=== PATIENT | female | born 1955 | race Caucasian/White ===

== ENCOUNTER 2019-05-30 08:08 | Inpatient (IN) | payer MEDICARE, MEDICAID ==
[2019-05-21 11:46] LABS: BASOPHILS # (AUTO) 0.1 X10'3 (0-0.2); EOSINOPHILS # (AUTO) 0.1 X10'3 (0-0.9); EOSINOPHILS % (AUTO) 1.5 % (0-6); LYMPHOCYTES # (AUTO) 1.4 X10'3 (1.1-4.8); LYMPHOCYTES % (AUTO) 17.9 % (21-51); MEAN CORPUSCULAR HEMOGLOBIN 30.2 PG (27.0-31.0); MEAN CORPUSCULAR HGB CONC 34.8 g/dL (33.0-36.5); MEAN CORPUSCULAR VOLUME 86.7 FL (78-98); MEAN PLATELET VOLUME 7.8 FL (7.4-10.4); MONOCYTES # (AUTO) 0.5 X10'3 (0-0.9); NEUTROPHILS # (AUTO) 5.6 X10'3 (1.8-7.7); NEUTROPHILS % (AUTO) 72.6 % (42-75); PRE OP HEMATOCRIT 40.2 % (35.0-45.0); PRE OP PLATELET COUNT 216 X10'3 (140-440); RED BLOOD COUNT 4.64 X10'6 (4.20-5.60); RED CELL DISTRIBUTION WIDTH 14.8 % (11.5-14.5)
[2019-05-21 11:57] LABS: PRE OP PROTIME 10.8 SECONDS (9.0-12.0)
[2019-05-21 12:02] LABS: ALBUMIN 3.6 G/DL (3.4-5.0); ALBUMIN/GLOBULIN RATIO 0.9 (1.1-1.5); ALKALINE PHOSPHATASE 109 IU/L (46-116); BLOOD UREA NITROGEN 20 MG/DL (7-18); BUN/CREATININE RATIO 18.3 (6.6-38.0); CHLORIDE 105 MMOL/L (99-107); CREATININE 1.09 MG/DL (0.40-0.90); PRE OP ALT 19 U/L (30-65); PRE OP ANION GAP 9 (8-16); PRE OP BILIRUB, TOTAL 0.4 MG/DL (0.0-1.0); PRE OP SODIUM 140 MMOL/L (135-145); TOTAL PROTEIN 7.4 G/DL (6.4-8.2); eGFR 51 ML/MIN
[2019-05-21 12:03] LABS: PRE OP GLUCOSE 117 MG/DL (70-104); PRE OP POTASSIUM 4.3 MMOL/L (3.4-5.1)
[2019-05-21 12:04] LABS: HEMOGLOBIN A1C 5.3 % (4.5-6.2)
[2019-05-21 12:15] LABS: PRE OP AST 18 U/L (10-37)
[~2019-05-30] VITALS: Ht 167.6 cm; Wt 86.2 kg
[2019-05-30] VITALS (15 sets, daily range): BP systolic 93–152; BP diastolic 67–99
[~2019-05-30 08:08] MED LIST: ALBU18HF2 INH; APIX5TAB3 PO; BUDE10.2 INH; DILT120T3 PO; DOCUMENT DATE & TIME OF BETA-BLOCKER PO ONE; FERR325T39 PO; FURO40TA4 PO; HYDR-3972 PO; LISI10TA4 PO; METF500T PO; METO25TA6 PO; MONT10TA21 PO; NITR0.4T SL; OMEP-50 PO; POTA10CA44 PO; RANI150T8 PO; SERT100T PO; SPIIN INH; albuterol 2.5 MG/3 ML nebule NEB ONE; cefazolin/dext.iso 2gm/100ml 100 ML IV ONE; famotidine 20mg tablet PO ONE; ringers solution, lacted 1,000 ML IV SCH; tranexamic acid inj. 860 MG in normal saline 100ml IV soln 100 ML IV ONE; vancomycin inj 1,500 MG in normal saline 300ml IV soln IV ONE
[2019-05-30] MEDS ORDERED: sevoflurane 250ml liquid IH ONE (12:15)
[2019-05-30] MEDS ORDERED: fentaNYL/PF 50MCG/1 ML 2ML syringe ONE (12:18)
[2019-05-30] MEDS ORDERED: MIDAZolam 5mg/5ml vial ONE (12:19)
[2019-05-30] MEDS ORDERED: propofol inj 20 ML IV ONE (12:58)
[2019-05-30] MEDS ORDERED: ePHEDrine 50MG/ML INJ. ONE (12:58)
[2019-05-30] MEDS ORDERED: ROPIVAcaine 0.5% (5mg/ml) 30ml vial ONE ×2 (13:20→13:31)
[2019-05-30] MEDS ORDERED: ketorolac trometh. 30mg/ml inj. ONE (13:20)
[2019-05-30] MEDS ORDERED: ringers solution, lacted 1,000 ML IV SCH (13:46)
[2019-05-30] MEDS ORDERED: ondansetron/PF 4mg/2ml inj IV PRN ×2 (13:50→14:50)
[2019-05-30] MEDS ORDERED: ROPIVAcaine 0.2% (10 MG/5 ML) BOLUS INJECTION INTERSCALE PRN (13:50)
[2019-05-30] MEDS ORDERED: proCHLORperazine 10 MG/2 ml inj IV PRN (13:50)
[2019-05-30] MEDS ORDERED: meperidine/PF 25mg/ml syringe IV PRN ×3 (13:50)
[2019-05-30] MEDS ORDERED: morphine 4 MG/ML inj SYRINge IV PRN ×2 (13:50)
--- NOTE | 2019-05-30 14:30 | NUR ---
Received from OR via ortho bed, accompanied by Anesthesiologist Vaughn and report given by Anesthesiolgist. Pt is stable and responding to questions, requesting food no pain, all VS stable, mask at 10L O2 100%. Bilateral radial pulses palpable. ON-Q line present to shoulder. Shoulder gauze dressing wrapped with sling and cool pack. SCDs present, no velasquez. 20G IV right wrist LR at 100cc/hr.
[2019-05-30] MEDS ORDERED: magnesium hydroxide 30ml (MOM) UD suspension PO PRN (14:50)
[2019-05-30] MEDS ORDERED: HYDROmorphone 1 mg/ml syringe IV PRN (14:50)
[2019-05-30] MEDS ORDERED: oxyCODONE IR 5mg (immed. release) tablet PO PRN (14:50)
[2019-05-30] MEDS ORDERED: acetaminophen 325mg tablet PO PRN (14:50)
[2019-05-30] MEDS ORDERED: bisacodyl 10mg suppository rectal RC PRN (14:50)
[2019-05-30] MEDS ORDERED: HYDROmorphone inj. 0.5 MG/0.5 ML DISP.SYRIN IV PRN (14:50)
[2019-05-30] MEDS ORDERED: HYDROcodone/acetaminophen 10/325mg tab PO PRN (14:50)
[2019-05-30] MEDS ORDERED: diphenhydrAMINE 25mg capsule PO PRN (14:50)
[2019-05-30] MEDS: ROPIVAcaine 0.2%/PF PUMP/bolus 550 ML INTERSCALE SCH (14:59)
[2019-05-30] MEDS ORDERED: albuterol 2.5 MG/3 ML nebule NEB PRN (15:10)
--- NOTE | 2019-05-30 15:30 | NUR ---
Report called to receiving nurse. Transferred via surgical bed. Belongings on bedside. Special Issues communicated to receiving nurse Neda CALHOUN. Pt VS remain WNL, pt continues to have no feeling in left hand, shoulder remains with ice pack dressing CDI. Chart at bedside, RN at [facility] prior to me leaving patient. O2 at 3L. Pt alert and oriented. Still complains of being very hungry.
--- NOTE | 2019-05-30 15:40 | NUR ---
ASSUMED CARE, RECEIVED REPORT FROM TJ CALHOUN. POST OP VITALS STARTED, PATIENT REPORTS 0/10 PAIN.
[2019-05-30] MEDS: ceFAZolin/D5W- 1GM premix 50 ML IV SCH (16:21)
[2019-05-30] MEDS: potassium cl 20mEq in 1/2 NS 1,000 ML IV SCH ×2 (17:42→22:46)
--- NOTE | 2019-05-30 17:53 | NUR ---
Student documentation: I have reviewed and agree with all interventions, assessments performed and documented by BRI PRADO.
--- NOTE | 2019-05-30 17:54 | NUR ---
Student Medication Administration: For this medication-pass time frame, all medication were reviewed, dispensed, administered and documented per hospital policy by BRI PRADO.
[2019-05-30] MEDS ORDERED: tranexamic acid inj. 860 MG in normal saline 100ml IV soln 100 ML IV ONE (18:00)
--- NOTE | 2019-05-30 18:10 | NUR ---
Problems reprioritized. Patient report given, questions answered & plan of care reviewed with IRINA CALHOUN.
--- NOTE | 2019-05-30 18:33 | NUR ---
Patient in room ORTHO 4015. I have received report from Neda CALHOUN and had the opportunity to ask questions and assume patient care.
[2019-05-30] MEDS: apixaban 5mg tablet PO SCH (19:49)
[2019-05-30] MEDS: ferrous sulfate 325mg tablet PO SCH (19:49)
[2019-05-30] MEDS: diltiazem SR 60mg capsule (twice daily) PO SCH (19:49)
[2019-05-30] MEDS: metoprolol tartrate 25mg tablet PO SCH (19:49)
[2019-05-30] MEDS: metFORMIN 500mg tablet PO SCH (19:49)
[2019-05-30] MEDS: acetaminophen 325mg tablet PO SCH (19:50)
[2019-05-30] MEDS ORDERED: vancomycin/NS 1 GM ADD-VANTAGE 250 ML IV SCH (20:00)
[2019-05-30] MEDS: famotidine 10mg tablet PO SCH (20:00)
[2019-05-30] MEDS ORDERED: famotidine 20mg tablet PO SCH (20:00)
[2019-05-30] MEDS: budesonide 0.5mg/2ml UD nebule IH SCH (20:04)
[2019-05-30] MEDS: ipratropium 0.5 MG/2.5ML nebule IH SCH (20:04)
[2019-05-30] MEDS: montelukast 10mg tablet PO SCH (20:43)
[2019-05-30] MEDS: sennosides 8.6mg tablet PO SCH (20:43)
[2019-05-30] MEDS: diphenhydrAMINE 25mg capsule PO PRN (22:14)
[2019-05-31] MEDS: ceFAZolin/D5W- 1GM premix 50 ML IV SCH (00:09)
[2019-05-31] MEDS: acetaminophen 325mg tablet PO SCH ×4 (02:00→20:58)
[2019-05-31] MEDS: ipratropium 0.5 MG/2.5ML nebule IH SCH ×4 (02:49→20:33)
[2019-05-31 03:00] VITALS: BP 104/65
[2019-05-31 05:22] LABS: BASOPHILS % (AUTO) 0.3 % (0-1); EOSINOPHILS % (AUTO) 0.5 % (0-6); HEMATOCRIT 31.4 % (35.0-45.0); LYMPHOCYTES % (AUTO) 12.6 % (21-51); MEAN CORPUSCULAR HEMOGLOBIN 30.5 PG (27.0-31.0); MEAN CORPUSCULAR VOLUME 87.2 FL (78-98); MEAN PLATELET VOLUME 8.6 FL (7.4-10.4); MONOCYTES # (AUTO) 0.5 X10'3 (0-0.9); NEUTROPHILS # (AUTO) 6.2 X10'3 (1.8-7.7); NEUTROPHILS % (AUTO) 80.6 % (42-75); PLATELET COUNT 147 X10'3 (140-440); RED CELL DISTRIBUTION WIDTH 14.6 % (11.5-14.5); WHITE BLOOD COUNT 7.7 X10'3 (4.5-11.0)
[2019-05-31 05:27] LABS: ANION GAP 10 (8-16); CHLORIDE 105 MMOL/L (99-107); POTASSIUM 3.9 MMOL/L (3.5-5.1); SODIUM 137 MMOL/L (135-145); TOTAL CARBON DIOXIDE 22.5 MMOL/L (24-32)
[2019-05-31 06:00] VITALS: BP 113/49
--- NOTE | 2019-05-31 06:00 | NUR ---
Patient in room ORTHO 4015. I have received report from Lisa CALHOUN and had the opportunity to ask questions and assume patient care.
--- NOTE | 2019-05-31 06:42 | NUR ---
Problems reprioritized. Patient report given, questions answered & plan of care reviewed with Emely CALHOUN.
[2019-05-31] MEDS: metFORMIN 500mg tablet PO SCH ×2 (07:41→19:25)
[2019-05-31] MEDS: pantoprazole 40mg Tablet.DR PO SCH (07:41)
[2019-05-31] MEDS: apixaban 5mg tablet PO SCH ×2 (07:42→19:25)
[2019-05-31] MEDS: diltiazem SR 60mg capsule (twice daily) PO SCH ×2 (07:42→19:36)
[2019-05-31] MEDS: ferrous sulfate 325mg tablet PO SCH ×2 (07:42→19:28)
[2019-05-31] MEDS: lisinopril 10 MG tablet PO SCH (07:43)
[2019-05-31] MEDS: sertraline 50mg tablet PO SCH (07:43)
[2019-05-31] MEDS: aspirin 325mg tablet PO SCH (07:43)
[2019-05-31] MEDS: metoprolol tartrate 25mg tablet PO SCH ×2 (07:44→19:28)
[2019-05-31] MEDS: famotidine 10mg tablet PO SCH ×2 (07:48→19:36)
[2019-05-31] MEDS: budesonide 0.5mg/2ml UD nebule IH SCH ×2 (08:29→20:33)
[2019-05-31 10:00] VITALS: BP 96/74
[2019-05-31] MEDS: oxyCODONE IR 5mg (immed. release) tablet PO PRN ×3 (15:16→23:50)
[2019-05-31 18:00] VITALS: BP 124/67
--- NOTE | 2019-05-31 18:16 | NUR ---
Problems reprioritized. Patient report given, questions answered & plan of care reviewed with Lisa CALHOUN.
--- NOTE | 2019-05-31 18:22 | NUR ---
Patient in room ORTHO 4015. I have received report from Emely CALHOUN and had the opportunity to ask questions and assume patient care.
[2019-05-31] MEDS: sennosides 8.6mg tablet PO SCH (20:58)
[2019-05-31] MEDS: montelukast 10mg tablet PO SCH (20:58)
[2019-05-31 22:00] VITALS: BP 111/54
[2019-06-01] MEDS: ipratropium 0.5 MG/2.5ML nebule IH SCH ×4 (02:32→19:36)
[2019-06-01] MEDS: acetaminophen 325mg tablet PO SCH ×3 (02:46→14:01)
[2019-06-01] MEDS: oxyCODONE IR 5mg (immed. release) tablet PO PRN ×5 (03:53→20:56)
[2019-06-01 06:00] VITALS: BP 131/66
--- NOTE | 2019-06-01 06:03 | NUR ---
Problems reprioritized. Patient report given, questions answered & plan of care reviewed with JOY CALHOUN.
--- NOTE | 2019-06-01 06:15 | NUR ---
received report from carlos eduardo [place]
[2019-06-01] MEDS: aspirin 325mg tablet PO SCH (07:12)
[2019-06-01] MEDS: apixaban 5mg tablet PO SCH ×2 (07:12→20:56)
[2019-06-01] MEDS: pantoprazole 40mg Tablet.DR PO SCH (07:12)
[2019-06-01] MEDS: diltiazem SR 60mg capsule (twice daily) PO SCH ×2 (07:14→20:56)
[2019-06-01] MEDS: famotidine 10mg tablet PO SCH ×2 (07:14→20:57)
[2019-06-01] MEDS: metFORMIN 500mg tablet PO SCH ×2 (07:14→20:57)
[2019-06-01] MEDS: ferrous sulfate 325mg tablet PO SCH ×2 (07:14→20:57)
[2019-06-01] MEDS: lisinopril 10 MG tablet PO SCH (07:15)
[2019-06-01] MEDS: metoprolol tartrate 25mg tablet PO SCH ×2 (07:16→20:57)
[2019-06-01] MEDS: sertraline 50mg tablet PO SCH (07:16)
--- NOTE | 2019-06-01 07:17 | NUR ---
JAYLIN DID NOT SCAN INTO [employer], CHECKED MEDS PRIOR TO ADMIN
[2019-06-01 07:38] LABS: BASOPHILS % (AUTO) 0.5 % (0-1); EOSINOPHILS # (AUTO) 0.1 X10'3 (0-0.9); EOSINOPHILS % (AUTO) 1.3 % (0-6); HEMATOCRIT 30.4 % (35.0-45.0); HEMOGLOBIN 10.4 g/dl (12.0-16.0); LYMPHOCYTES # (AUTO) 0.9 X10'3 (1.1-4.8); LYMPHOCYTES % (AUTO) 16.1 % (21-51); MEAN CORPUSCULAR HEMOGLOBIN 30.3 PG (27.0-31.0); MEAN CORPUSCULAR HGB CONC 34.1 g/dL (33.0-36.5); MEAN CORPUSCULAR VOLUME 88.9 FL (78-98); MEAN PLATELET VOLUME 9.5 FL (7.4-10.4); MONOCYTES # (AUTO) 0.5 X10'3 (0-0.9); MONOCYTES % (AUTO) 8.9 % (2-12); NEUTROPHILS # (AUTO) 4.2 X10'3 (1.8-7.7); NEUTROPHILS % (AUTO) 73.2 % (42-75); PLATELET COUNT 126 X10'3 (140-440); RED BLOOD COUNT 3.41 X10'6 (4.20-5.60); RED CELL DISTRIBUTION WIDTH 14.7 % (11.5-14.5); WHITE BLOOD COUNT 5.8 X10'3 (4.5-11.0)
[2019-06-01] MEDS ORDERED: potassium chloride 10mEq ER tablet PO SCH (08:00)
[2019-06-01] MEDS ORDERED: furosemide 40mg tablet PO SCH (08:00)
[2019-06-01] MEDS: budesonide 0.5mg/2ml UD nebule IH SCH ×2 (08:35→19:37)
[2019-06-01 10:00] VITALS: BP 110/60
[2019-06-01] MEDS: ROPIVAcaine 0.2%/PF PUMP/bolus 550 ML INTERSCALE SCH (12:28)
[2019-06-01] MEDS ORDERED: acetaminophen 325mg tablet PO PRN (14:50)
--- NOTE | 2019-06-01 15:08 | NUR ---
GAVE REPORT TO LJ ASTUDILLO
[2019-06-01 18:00] VITALS: BP 111/64
--- NOTE | 2019-06-01 18:21 | NUR ---
Patient in room ORTHO 4015. I have received report from Tanja CALHOUN and had the opportunity to ask questions and assume patient care.
--- NOTE | 2019-06-01 18:27 | NUR ---
Problems reprioritized. Patient report given, questions answered & plan of care reviewed with LJ Gonzalez.
[2019-06-01] MEDS: montelukast 10mg tablet PO SCH (20:56)
[2019-06-01] MEDS: sennosides 8.6mg tablet PO SCH (20:57)
[2019-06-01] MEDS: diphenhydrAMINE 25mg capsule PO PRN (21:00)
[2019-06-01 22:00] VITALS: BP 123/72
[2019-06-02] MEDS: oxyCODONE IR 5mg (immed. release) tablet PO PRN ×4 (01:06→09:30)
[2019-06-02] MEDS: ipratropium 0.5 MG/2.5ML nebule IH SCH ×2 (02:36→08:29)
--- NOTE | 2019-06-02 06:26 | NUR ---
Patient in room ORTHO 4015. I have received report from Tanja CALHOUN and had the opportunity to ask questions and assume patient care.
[2019-06-02 06:53] LABS: BASOPHILS % (AUTO) 0.7 % (0-1); EOSINOPHILS # (AUTO) 0.1 X10'3 (0-0.9); EOSINOPHILS % (AUTO) 1.1 % (0-6); HEMATOCRIT 30.5 % (35.0-45.0); HEMOGLOBIN 10.5 g/dl (12.0-16.0); LYMPHOCYTES # (AUTO) 0.8 X10'3 (1.1-4.8); LYMPHOCYTES % (AUTO) 14.5 % (21-51); MEAN CORPUSCULAR HEMOGLOBIN 29.7 PG (27.0-31.0); MEAN CORPUSCULAR HGB CONC 34.3 g/dL (33.0-36.5); MEAN CORPUSCULAR VOLUME 86.7 FL (78-98); MEAN PLATELET VOLUME 9.1 FL (7.4-10.4); MONOCYTES # (AUTO) 0.4 X10'3 (0-0.9); MONOCYTES % (AUTO) 7.4 % (2-12); NEUTROPHILS # (AUTO) 4.5 X10'3 (1.8-7.7); NEUTROPHILS % (AUTO) 76.3 % (42-75); PLATELET COUNT 156 X10'3 (140-440); RED BLOOD COUNT 3.52 X10'6 (4.20-5.60); RED CELL DISTRIBUTION WIDTH 14.5 % (11.5-14.5); WHITE BLOOD COUNT 5.8 X10'3 (4.5-11.0)
[2019-06-02 07:15] VITALS: BP 119/67
[2019-06-02 07:30] VITALS: BP 138/77
[2019-06-02] MEDS: apixaban 5mg tablet PO SCH (07:32)
[2019-06-02] MEDS: pantoprazole 40mg Tablet.DR PO SCH (07:32)
[2019-06-02] MEDS: diltiazem SR 60mg capsule (twice daily) PO SCH (07:32)
[2019-06-02] MEDS: metFORMIN 500mg tablet PO SCH (07:33)
[2019-06-02] MEDS: ferrous sulfate 325mg tablet PO SCH (07:33)
[2019-06-02] MEDS: metoprolol tartrate 25mg tablet PO SCH (07:33)
[2019-06-02] MEDS: lisinopril 10 MG tablet PO SCH (07:34)
[2019-06-02] MEDS: famotidine 10mg tablet PO SCH (07:34)
[2019-06-02] MEDS: sertraline 50mg tablet PO SCH (07:35)
[2019-06-02] MEDS: aspirin 325mg tablet PO SCH (07:36)
[2019-06-02] MEDS: budesonide 0.5mg/2ml UD nebule IH SCH (08:24)
[2019-06-02 09:53] VITALS: BP 118/63
--- NOTE | 2019-06-02 11:00 | NUR ---
Discussed pts current plan for pain medication while at home after dc today. Pt states she is already taking Hazen 10 2 tabs/day, and has a prescription she gets from her PCP in [place]. Pt states she cannot fill 's RX for Hazen until 06/07. Pt states she wants Dr. Blackwell to order Oxy IR "because it works really great." in surgery today. Informed pt I would call his office to leave a message about pain medication needs. Pt still has approximately 1/2 of the Ropivicaine ball left. Ropivicaine set at 10ml/hr. TC placed to Dr. Blackwell's office and spoke to vEa, who informed RN that she will contact in Surgery to let him know pt cannot fill current RX for Hazen post op until 06/07, but she does have Hazen RX at home with pills to last until 06/21. arrived on the unit at approximately 1100. Went to make rounds with Dr. Blackwell. Dr. Blackwell informed pt that he will cancel the first RX given to her at her pre op appt for Hazen 10, and will order Oxy IR enough for 2 weeks, but wants her off all narcotics in [address] Blackwell advised to pt to use the rest of the Ropivicaine pump, then dc. Dressing change done to left shoulder. Removed old dressing, which had a scant amount of sanguineous drainage on it. Incision is clean/dry and applied new [place] dressing. IV removed from LFA and bandaid applied. No redness/swelling at IV site. Pt discharged at 1200 via w/c to private vehicle.
--- NOTE | 2019-06-02 11:10 | NUR ---
Student documentation:I have reviewed and agree with all interventions, assessments performed and documented by Alicia Stevenson.
== END 2019-06-02 12:00 | disposition home or self-care (01) | DRG 483 ==
LOC: PAS IN 08:08 → EDSTATUS 11:00 → ORTHO 4S 15:15
PROVIDERS: ADMIT Orthopaedic Surgery; ATTEND Orthopaedic Surgery
PROC: 0LS40ZZ Reposition Left Upper Arm Tendon, Open Approach (ICD-10-PCS; 2019-05-30)
PROC: 3E0T3BZ Introduction of Anesthetic Agent into Peripheral Nerves and Plexi, Percutaneous Approach (ICD-10-PCS; 2019-05-30)
PROC: 0RRK00Z Replacement of Left Shoulder Joint with Reverse Ball and Socket Synthetic Substitute, Open Approach (ICD-10-PCS; principal; 2019-05-30 12:19)
PROC: 5A09357 Assistance with Respiratory Ventilation, Less than 24 Consecutive Hours, Continuous Positive Airway Pressure (ICD-10-PCS; 2019-05-31)
PROC: 5A09357 Assistance with Respiratory Ventilation, Less than 24 Consecutive Hours, Continuous Positive Airway Pressure (ICD-10-PCS; 2019-06-01)
DX: M19.012 Primary osteoarthritis, left shoulder (principal); M75.122 Complete rotator cuff tear or rupture of left shoulder, not specified as traumatic; J44.9 Chronic obstructive pulmonary disease, unspecified; G89.4 Chronic pain syndrome; E66.9 Obesity, unspecified; I12.9 Hypertensive chronic kidney disease with stage 1 through stage 4 chronic kidney disease, or unspecified chronic kidney disease; N18.3 Chronic kidney disease, stage 3 (moderate); K21.9 Gastro-esophageal reflux disease without esophagitis; I48.91 Unspecified atrial fibrillation; E78.5 Hyperlipidemia, unspecified; Z96.643 Presence of artificial hip joint, bilateral; Z88.0 Allergy status to penicillin; Z68.30 Body mass index [BMI] 30.0-30.9, adult
CPT/HCPCS: 36415; 71046; 80051; 80053; 82948; 83036; 85025; 85610; 85730; 87081; 94640; 94760; 97110; 97116; 97161; 97530; A4565; A4618; A7000; C1776; G0378; J0690; J1885; J2250; J2405; J2704; J2795; J3010; J3370; J3480; J7120; J7626; Q0163

== ENCOUNTER 2020-06-20 11:33 | Inpatient (IN) | payer MEDICARE, MEDICAID ==
[~2020-06-20] VITALS: Ht 165.1 cm; Wt 89.6 kg
[~2020-06-20 11:33] MED LIST changes: -DOCUMENT DATE & TIME OF BETA-BLOCKER PO ONE; -albuterol 2.5 MG/3 ML nebule NEB ONE; -cefazolin/dext.iso 2gm/100ml 100 ML IV ONE; -famotidine 20mg tablet PO ONE; -ringers solution, lacted 1,000 ML IV SCH; -tranexamic acid inj. 860 MG in normal saline 100ml IV soln 100 ML IV ONE; -vancomycin inj 1,500 MG in normal saline 300ml IV soln IV ONE
[2020-06-20] MEDS ORDERED: aspirin 81mg tab.chew PO ONE (12:10)
[2020-06-20 12:26] LABS: BASOPHILS % (AUTO) 0.6 % (0-1); EOSINOPHILS % (AUTO) 0.8 % (0-6); HEMATOCRIT 32.5 % (35.0-45.0); HEMOGLOBIN 11.3 g/dl (12.0-16.0); LYMPHOCYTES % (AUTO) 16.6 % (21-51); MEAN CORPUSCULAR HEMOGLOBIN 31.1 PG (27.0-31.0); MEAN CORPUSCULAR HGB CONC 34.8 g/dL (33.0-36.5); MEAN CORPUSCULAR VOLUME 89.2 FL (78-98); MEAN PLATELET VOLUME 8.7 FL (7.4-10.4); MONOCYTES # (AUTO) 0.3 X10'3 (0-0.9); MONOCYTES % (AUTO) 5.5 % (2-12); NEUTROPHILS # (AUTO) 4.5 X10'3 (1.8-7.7); NEUTROPHILS % (AUTO) 76.5 % (42-75); PLATELET COUNT 134 X10'3 (140-440); RED BLOOD COUNT 3.65 X10'6 (4.20-5.60); RED CELL DISTRIBUTION WIDTH 14.3 % (11.5-14.5); WHITE BLOOD COUNT 5.8 X10'3 (4.5-11.0)
[2020-06-20 12:29] LABS: PARTIAL THROMBOPLASTIN TIME 28 SECONDS (22-32)
[2020-06-20 12:32] LABS: ALANINE AMINOTRANSFERASE 57 U/L (12-78); ALBUMIN 3.5 G/DL (3.4-5.0); ALKALINE PHOSPHATASE 104 IU/L (46-116); ANION GAP 10 (8-16); ASPARTATE AMINO TRANSFERASE 34 U/L (10-37); BILIRUBIN,TOTAL 0.4 MG/DL (0.1-1.0); BLOOD UREA NITROGEN 16 MG/DL (7-18); BUN/CREATININE RATIO 18.4 (6.6-38.0); CALCIUM 8.9 MG/DL (8.5-10.1); CHLORIDE 107 MMOL/L (99-107); CREATININE 0.87 MG/DL (0.40-0.90); GLUCOSE 107 MG/DL (70-104); POTASSIUM 3.6 MMOL/L (3.5-5.1); SODIUM 143 MMOL/L (135-145); TOTAL CARBON DIOXIDE 26.5 MMOL/L (24-32); TOTAL PROTEIN 6.9 G/DL (6.4-8.2); eGFR 65 ML/MIN
[2020-06-20] MEDS ORDERED: mag hydrox/Alum hydrox/simeth 30ml oral suspension PO PRN (14:00)
[2020-06-20] MEDS ORDERED: acetaminophen 650mg rectal suppository RC PRN (14:00)
[2020-06-20] MEDS ORDERED: potassium Cl 20 mEq SR tablet PO PRN ×2 (14:00)
[2020-06-20] MEDS ORDERED: potassium Cl 40MEQ/1/2NS 520ml 520 ML IV PRN ×2 (14:00)
[2020-06-20] MEDS ORDERED: aminophylline 250mg/10ml inj. IV PRN (14:00)
[2020-06-20] MEDS ORDERED: metoprolol tartrate 1mg/ml inj IV PRN (14:00)
[2020-06-20] MEDS ORDERED: magnesium hydroxide 30ml (MOM) UD suspension PO PRN (14:00)
[2020-06-20] MEDS ORDERED: magnesium Cl slow-release 64mg tablet PO PRN (14:00)
[2020-06-20] MEDS ORDERED: bisacodyl 10mg suppository rectal RC PRN (14:00)
[2020-06-20] MEDS ORDERED: morphine 2 MG/ML inj. syringe IV PRN ×2 (14:00)
[2020-06-20] MEDS ORDERED: regadenoson 0.4mg/5ml syringe IV PRN ×2 (14:00→14:25)
[2020-06-20] MEDS ORDERED: nitroGLYCERIN 0.4mg SUBLingual tab SL PRN (14:00)
[2020-06-20] MEDS ORDERED: ondansetron/PF 4mg/2ml inj IV PRN (14:00)
[2020-06-20] MEDS ORDERED: magnesium 2GM in 50ml NS 50 ML IV PRN (14:00)
[2020-06-20] MEDS ORDERED: HYDROcodone/acetaminophen 5mg/325mg tablet PO PRN (14:00)
[2020-06-20] MEDS ORDERED: magnesium 4gm in 100ml NS 100 ML IV PRN (14:00)
[2020-06-20] MEDS ORDERED: acetaminophen 325mg tablet PO PRN (14:00)
[2020-06-20] MEDS ORDERED: diphenhydrAMINE 25mg capsule PO PRN (14:00)
[2020-06-20] MEDS: normal saline 1000ml 1,000 ML IV SCH (14:39)
[2020-06-20 15:00] VITALS: BP 145/74
--- NOTE | 2020-06-20 15:00 | NUR ---
Patient in room PCU 3014. I have received report from LJ Worthington and had the opportunity to ask questions and assume patient care.
--- NOTE | 2020-06-20 15:15 | NUR ---
Pt arrived on unit via gurney. Placed her on telemetry, VS: T-97.5, HR 82, RR 22, 97% RA, BP 145/77. Pt denies CP or SOB. Will continue to monitor.
[2020-06-20 16:02] LABS: HEMOGLOBIN A1C 5.4 % (4.5-6.2)
[2020-06-20] MEDS ORDERED: ipratropium/albuterol 3ml nebule NEB PRN (17:35)
[2020-06-20 18:00] VITALS: BP 175/89
--- NOTE | 2020-06-20 18:09 | NUR ---
Problems reprioritized. Patient report given, questions answered & plan of care reviewed with LJ Browning.
--- NOTE | 2020-06-20 18:33 | NUR ---
Patient in room PCU 3014. I have received report from Geovanna CALHOUN and had the opportunity to ask questions and assume patient care.
[2020-06-20] MEDS ORDERED: hydrALAZINE 20mg/ml inj. IV ONE (18:55)
[2020-06-20] MEDS ORDERED: methylPREDNISolone sod succ 125mg/2ml vial IV ONE (18:55)
[2020-06-20] MEDS ORDERED: hydrALAZINE 20mg/ml inj. IV PRN (18:55)
[2020-06-20] MEDS: ipratropium/albuterol 3ml nebule NEB SCH ×2 (19:53→23:26)
[2020-06-20] MEDS: K and/or MAG REPLACEMENT MC SCH (20:00)
[2020-06-20] MEDS: HYDROcodone/acetaminophen 10/325mg tab PO PRN (20:42)
[2020-06-20] MEDS: methylPREDNISolone sod succ 125mg/2ml vial IV SCH (20:43)
[2020-06-20] MEDS ORDERED: diphenhydrAMINE 25 MG/10 ML UD oral solution PO ONE (21:00)
--- NOTE | 2020-06-20 21:53 | NUR ---
Paged Dr. Ch RE sleep meds, anxiety, high BP RE Kaity Fitzpatrick 65F [id number]; please call Nallely CALHOUN [phone]
[2020-06-20 22:00] VITALS: BP 166/78
[2020-06-20] MEDS ORDERED: metoprolol tartrate 1mg/ml inj IV ONE (22:00)
[2020-06-21] VITALS (19 sets, daily range): BP systolic 137–169; BP diastolic 70–99
[2020-06-21] MEDS: methylPREDNISolone sod succ 125mg/2ml vial IV SCH ×4 (02:47→20:27)
[2020-06-21] MEDS: ipratropium/albuterol 3ml nebule NEB SCH ×6 (03:51→23:22)
--- NOTE | 2020-06-21 06:12 | NUR ---
Patient in room U 3014. I have received report from Kanwal and had the opportunity to ask questions and assume patient care. Addendum: 06/21/20 at 0613 by Geovanna Clifford RN Nallely CALHOUN
[2020-06-21 06:20] LABS: BASOPHILS % (AUTO) 0.2 % (0-1); EOSINOPHILS % (AUTO) 0 % (0-6); HEMATOCRIT 32.7 % (35.0-45.0); HEMOGLOBIN 11.2 g/dl (12.0-16.0); LYMPHOCYTES # (AUTO) 0.2 X10'3 (1.1-4.8); LYMPHOCYTES % (AUTO) 3.4 % (21-51); MEAN CORPUSCULAR HEMOGLOBIN 30.6 PG (27.0-31.0); MEAN CORPUSCULAR HGB CONC 34.4 g/dL (33.0-36.5); MEAN CORPUSCULAR VOLUME 89.1 FL (78-98); MEAN PLATELET VOLUME 8.9 FL (7.4-10.4); MONOCYTES # (AUTO) 0.1 X10'3 (0-0.9); MONOCYTES % (AUTO) 1.1 % (2-12); NEUTROPHILS # (AUTO) 4.9 X10'3 (1.8-7.7); NEUTROPHILS % (AUTO) 95.3 % (42-75); PLATELET COUNT 155 X10'3 (140-440); RED BLOOD COUNT 3.67 X10'6 (4.20-5.60); RED CELL DISTRIBUTION WIDTH 14.2 % (11.5-14.5); WHITE BLOOD COUNT 5.2 X10'3 (4.5-11.0)
--- NOTE | 2020-06-21 06:23 | NUR ---
Problems reprioritized. Patient report given, questions answered & plan of care reviewed with Geovanna CALHOUN.
[2020-06-21 06:48] LABS: ALANINE AMINOTRANSFERASE 44 U/L (12-78); ALBUMIN 3.5 G/DL (3.4-5.0); ALBUMIN/GLOBULIN RATIO 0.9 (1.1-1.5); ALKALINE PHOSPHATASE 98 IU/L (46-116); ANION GAP 13 (8-16); ASPARTATE AMINO TRANSFERASE 18 U/L (10-37); BILIRUBIN,TOTAL 0.4 MG/DL (0.1-1.0); BLOOD UREA NITROGEN 13 MG/DL (7-18); BUN/CREATININE RATIO 14.6 (6.6-38.0); CALCIUM 9.3 MG/DL (8.5-10.1); CHLORIDE 105 MMOL/L (99-107); CHOL/HDL RATIO 4.1 (0.00-4.99); CHOLESTEROL 262 MG/DL (0-200); CREATININE 0.89 MG/DL (0.40-0.90); GLUCOSE 199 MG/DL (70-104); HDL CHOLESTEROL 64 MG/DL (35-60); LDL CHOLESTEROL 174 MG/DL (50-100); PHOSPHORUS 2.9 MG/DL (2.3-4.5); POTASSIUM 3.6 MMOL/L (3.5-5.1); SODIUM 141 MMOL/L (135-145); TOTAL CARBON DIOXIDE 22.9 MMOL/L (24-32); TOTAL PROTEIN 7.3 G/DL (6.4-8.2); TRIGLYCERIDES 140 MG/DL (20-135); eGFR 63 ML/MIN
--- NOTE | 2020-06-21 07:36 | NUR ---
PAGER ID: [phone] MESSAGE: Pt Kaity Fitzpatrick is stating she took a Payton at [facility]'s office within the last six mos, do you still want the Payton? Couldn't see it in any notes we have. Nuc med is standing by. pls advise, Geovanna [id number]
[2020-06-21] MEDS: acetaminophen 325mg tablet PO PRN ×2 (07:38→14:52)
[2020-06-21] MEDS: K and/or MAG REPLACEMENT MC SCH ×2 (08:00→20:00)
[2020-06-21] MEDS: lisinopril 10 MG tablet PO SCH (11:10)
[2020-06-21] MEDS: atorvastatin 20mg tablet PO SCH (11:10)
[2020-06-21] MEDS: sertraline 50mg tablet PO SCH (11:10)
[2020-06-21] MEDS: diltiazem SR 60mg capsule (twice daily) PO SCH ×2 (11:16→20:27)
[2020-06-21] MEDS: apixaban 5mg tablet PO SCH ×2 (11:16→20:25)
[2020-06-21] MEDS: metoprolol tartrate 50mg tablet PO SCH ×2 (11:17→20:26)
--- NOTE | 2020-06-21 14:31 | NUR ---
Noted BMI 0.8 w/ current wt 2200g; not accurate. SHIRA recommended updated scaled wt this admit; notified. To f/u 06/25 for initial assessment. Addendum: 06/21/20 at [address] Amended: Links added.
--- NOTE | 2020-06-21 18:58 | NUR ---
Patient in room PCU 3014. I have received report from Geovanna CALHOUN and had the opportunity to ask questions and assume patient care.
[2020-06-21] MEDS: pantoprazole 40mg Tablet.DR PO SCH (20:00)
[2020-06-21] MEDS ORDERED: diltiazem SR 60mg capsule (twice daily) PO SCH (20:00)
[2020-06-21] MEDS ORDERED: metoprolol tartrate 50mg tablet PO SCH (20:00)
[2020-06-21] MEDS ORDERED: apixaban 5mg tablet PO SCH (20:00)
[2020-06-21] MEDS: ferrous sulfate 325mg tablet PO SCH (20:25)
[2020-06-21] MEDS ORDERED: montelukast 10mg tablet PO SCH (21:00)
[2020-06-21] MEDS: HYDROcodone/acetaminophen 10/325mg tab PO PRN (22:04)
[2020-06-22 02:00] VITALS: BP 142/73
[2020-06-22] MEDS: methylPREDNISolone sod succ 125mg/2ml vial IV SCH ×2 (02:32→07:42)
[2020-06-22] MEDS: ipratropium/albuterol 3ml nebule NEB SCH ×3 (03:04→10:27)
[2020-06-22 06:28] LABS: BASOPHILS % (AUTO) 0.1 % (0-1); EOSINOPHILS % (AUTO) 0 % (0-6); HEMATOCRIT 31.2 % (35.0-45.0); HEMOGLOBIN 10.6 g/dl (12.0-16.0); LYMPHOCYTES # (AUTO) 0.3 X10'3 (1.1-4.8); MEAN CORPUSCULAR HEMOGLOBIN 30.5 PG (27.0-31.0); MEAN CORPUSCULAR HGB CONC 33.9 g/dL (33.0-36.5); MEAN CORPUSCULAR VOLUME 89.8 FL (78-98); MEAN PLATELET VOLUME 8.9 FL (7.4-10.4); MONOCYTES # (AUTO) 0.1 X10'3 (0-0.9); MONOCYTES % (AUTO) 1.8 % (2-12); NEUTROPHILS # (AUTO) 5.9 X10'3 (1.8-7.7); NEUTROPHILS % (AUTO) 94.1 % (42-75); PLATELET COUNT 153 X10'3 (140-440); RED BLOOD COUNT 3.47 X10'6 (4.20-5.60); RED CELL DISTRIBUTION WIDTH 14.6 % (11.5-14.5); WHITE BLOOD COUNT 6.3 X10'3 (4.5-11.0)
--- NOTE | 2020-06-22 06:31 | NUR ---
Problems reprioritized. Patient report given, questions answered & plan of care reviewed with Geovanna CALHOUN.
--- NOTE | 2020-06-22 06:39 | NUR ---
Patient in room PCU 3014. I have received report from LJ Browning and had the opportunity to ask questions and assume patient care.
[2020-06-22 06:57] LABS: ALANINE AMINOTRANSFERASE 42 U/L (12-78); ALBUMIN 3.3 G/DL (3.4-5.0); ALBUMIN/GLOBULIN RATIO 0.9 (1.1-1.5); ALKALINE PHOSPHATASE 86 IU/L (46-116); ANION GAP 6 (8-16); ASPARTATE AMINO TRANSFERASE 17 U/L (10-37); BILIRUBIN,TOTAL 0.2 MG/DL (0.1-1.0); BLOOD UREA NITROGEN 22 MG/DL (7-18); BUN/CREATININE RATIO 29.3 (6.6-38.0); CHLORIDE 107 MMOL/L (99-107); CREATININE 0.75 MG/DL (0.40-0.90); GLUCOSE 144 MG/DL (70-104); MAGNESIUM 2.3 MG/DL (1.5-2.4); PHOSPHORUS 3.2 MG/DL (2.3-4.5); SODIUM 139 MMOL/L (135-145); TOTAL CARBON DIOXIDE 26.4 MMOL/L (24-32); TOTAL PROTEIN 6.8 G/DL (6.4-8.2); eGFR 77 ML/MIN
[2020-06-22 07:00] VITALS: BP 142/64
[2020-06-22] MEDS: atorvastatin 20mg tablet PO SCH (07:42)
[2020-06-22] MEDS: apixaban 5mg tablet PO SCH (07:43)
[2020-06-22] MEDS: pantoprazole 40mg Tablet.DR PO SCH (07:43)
[2020-06-22] MEDS: lisinopril 10 MG tablet PO SCH (07:43)
[2020-06-22] MEDS: diltiazem SR 60mg capsule (twice daily) PO SCH (07:43)
[2020-06-22 07:44] VITALS: BP_SYST 142
[2020-06-22] MEDS: metoprolol tartrate 50mg tablet PO SCH (07:44)
[2020-06-22] MEDS: ferrous sulfate 325mg tablet PO SCH (07:44)
[2020-06-22] MEDS: sertraline 50mg tablet PO SCH (07:44)
[2020-06-22] MEDS: K and/or MAG REPLACEMENT MC SCH (08:00)
[2020-06-22] MEDS: normal saline 1000ml 1,000 ML IV SCH (08:28)
--- NOTE | 2020-06-22 09:37 | NUR ---
Per radiotelephone operator: report of failure to capture last night was actually false. The cursor was on the screen and mistaken for a failure to capture. It was actually her rhythm converting from junction paced to Vpaced to SR. Re-interrogation not needed. Will let know.
[2020-06-22] MEDS ORDERED: ipratropium 0.5 MG/2.5ML nebule NEB SCH (10:30)
[2020-06-22] MEDS ORDERED: CEFD300C3 PO (10:39)
[2020-06-22] MEDS ORDERED: PRED10TA23 PO (10:39)
[2020-06-22] MEDS ORDERED: ATOR20TA66 PO (10:39)
[2020-06-22] MEDS ORDERED: CefTRIAXone/D5W-Rocephin 1gm 50 ML IV ONE (10:45)
--- NOTE | 2020-06-22 11:45 | NUR ---
Pt bumped her forehead in shower on grab bar while bending over to grab soap while tech standing by. Small slightly raised bump on forehead. Pt states it "doesn't hurt, I'm fine, It was my fault". Pt denies dizziness, pain, or lightheadedness. Pt still wants to discharge as planned, refuses any pics, xrays, or further treatment. She states, "the only thing I hurt was my pride." Reported to charge nurse. Will continue to monitor.
--- NOTE | 2020-06-22 14:15 | NUR ---
Pt stable for discharge per MD order, all discharge instructions reviewed with patient and all questions answered. New prescriptions faxed to pharmacy. PIV discontinued, cannula intact. Telemetry discontinued, hospital television rental clerk notified. All belongings collected and sent with patient. Pt picked up in private vehicle by family member, wheeled to lobby by staff.
[2020-06-22] MEDS ORDERED: GUAI600T45 PO (18:21)
--- NOTE | 2020-06-23 14:42 | NUR ---
CASE MANAGEMENT DISCHARGE FOLLOW UP: Spoke with pt via telephone. Pt reports that she is doing alright. Denies sx of exacerbated SOB, syncope, dizziness. Verbalizes understanding of s/sx requiring further evaluation/emergent assistance. Pt verbalizes understanding of new/current/stopped prescriptions, states that he daughter is picking them up from the pharmacy. Pt verbalizes compliance with MD discharge instructions. Pt verbalizes importance of making/keeping follow-up appointments, cannot get an appointment with PCP until 07/12 but will call if condition changes. Pt states will call Dr. Davies's office for a follow up appointment after she gets off the phone. Pt reports that she is wearing her CPAP at night and using her nebulizer for breathing treatments and that is helping. Pt states no further questions/concerns at this time.
== END 2020-06-22 14:16 | disposition home or self-care (01) | DRG 291 ==
LOC: ER 11:33 → PCU 3S 13:58 → CMPBEDREQ 06-21 19:28
PROVIDERS: ADMIT Family Medicine; ATTEND Family Medicine
PROC: 5A09357 Assistance with Respiratory Ventilation, Less than 24 Consecutive Hours, Continuous Positive Airway Pressure (ICD-10-PCS; 2020-06-20)
PROC: 4A02XM4 Measurement of Cardiac Total Activity, External Approach (ICD-10-PCS; principal; 2020-06-21)
PROC: 3E033HZ Introduction of Radioactive Substance into Peripheral Vein, Percutaneous Approach (ICD-10-PCS; 2020-06-21)
PROC: 5A09357 Assistance with Respiratory Ventilation, Less than 24 Consecutive Hours, Continuous Positive Airway Pressure (ICD-10-PCS; 2020-06-21)
PROC: 5A09357 Assistance with Respiratory Ventilation, Less than 24 Consecutive Hours, Continuous Positive Airway Pressure (ICD-10-PCS; 2020-06-22)
DX: I11.0 Hypertensive heart disease with heart failure (principal); J96.20 Acute and chronic respiratory failure, unspecified whether with hypoxia or hypercapnia; J44.1 Chronic obstructive pulmonary disease with (acute) exacerbation; J44.0 Chronic obstructive pulmonary disease with (acute) lower respiratory infection; K21.9 Gastro-esophageal reflux disease without esophagitis; I50.33 Acute on chronic diastolic (congestive) heart failure; I25.110 Atherosclerotic heart disease of native coronary artery with unstable angina pectoris; J20.9 Acute bronchitis, unspecified; I27.20 Pulmonary hypertension, unspecified; G47.30 Sleep apnea, unspecified; D63.8 Anemia in other chronic diseases classified elsewhere; G89.4 Chronic pain syndrome; I27.81 Cor pulmonale (chronic); Z96.612 Presence of left artificial shoulder joint; Z96.611 Presence of right artificial shoulder joint; I48.91 Unspecified atrial fibrillation; E11.9 Type 2 diabetes mellitus without complications; Z20.828 Contact with and (suspected) exposure to other viral communicable diseases; Z95.1 Presence of aortocoronary bypass graft; Z87.891 Personal history of nicotine dependence; Z88.0 Allergy status to penicillin; F32.9 Major depressive disorder, single episode, unspecified; F41.9 Anxiety disorder, unspecified; Z95.2 Presence of prosthetic heart valve; Z83.3 Family history of diabetes mellitus; Z82.3 Family history of stroke; Z95.810 Presence of automatic (implantable) cardiac defibrillator; Z79.01 Long term (current) use of anticoagulants
CPT/HCPCS: 36415; 71045; 78452; 80053; 80061; 82948; 83036; 83735; 84100; 84484; 85025; 85730; 87081; 87635; 93005; 93017; 93306; 93308; 94640; 94660; 94667; 94760; 96374; 96375; 97116; 97161; 97530; 99285; A9500; C9803; G0378; J0280; J0360; J0696; J2785; J2930; J3490; J7030; Q0163

== ENCOUNTER 2020-10-03 08:20 | Emergency (ER) | payer MEDICARE, MEDICAID ==
[~2020-10-03] VITALS: Ht 165.1 cm; Wt 81.8 kg
[~2020-10-03 08:20] MED LIST changes: +ATOR20TA66 PO; +GUAI600T45 PO; +LISI10TA27 PO; -LISI10TA4 PO; +LOP25T PO; -METO25TA6 PO; -RANI150T8 PO
[2020-10-03] MEDS ORDERED: ondansetron/PF 4mg/2ml inj IV ONE (10:40)
[2020-10-03] MEDS ORDERED: meclizine 12.5mg tablet PO ONE (10:40)
[2020-10-03] MEDS ORDERED: MIDAZolam 1 MG/ML 5ML VIAL IV ONE (10:40)
[2020-10-03] MEDS ORDERED: midazolam 1 mg/ML 2ml injection IV ONE (11:15)
[2020-10-03] MEDS ORDERED: MECL-159 PO (12:12)
[2020-10-03] MEDS ORDERED: ONDA4TAB6 PO (12:12)
[2020-10-03 13:00] VITALS: BP 123/63
== END 2020-10-03 13:04 | disposition home or self-care (01) ==
LOC: ER 08:20
DX: R42 Dizziness and giddiness (principal); R51.9 Headache, unspecified; I48.91 Unspecified atrial fibrillation; I50.9 Heart failure, unspecified; J44.9 Chronic obstructive pulmonary disease, unspecified; K21.9 Gastro-esophageal reflux disease without esophagitis; F41.9 Anxiety disorder, unspecified; Z86.2 Personal history of diseases of the blood and blood-forming organs and certain disorders involving the immune mechanism; Z98.890 Other specified postprocedural states; Z88.0 Allergy status to penicillin; Z79.899 Other long term (current) drug therapy
CPT/HCPCS: 70450; 93005; 96374; 96375; 99285; J2250; J2405; J8597

== ENCOUNTER 2021-07-12 21:42 | Emergency (ER) | payer BC, MEDICAID ==
[~2021-07-12] VITALS: Ht 165.1 cm; Wt 80.0 kg
[~2021-07-12 21:42] MED LIST changes: +MECL-159 PO; +ONDA4TAB6 PO
--- NOTE | 2021-07-12 21:49 | NUR ---
PLEASE CALL BERNADINE PIMENTEL [phone] WHEN FIND WHATS GOING ON
[2021-07-13] MEDS ORDERED: sulfamethoxazole/trimethoprim DS (800/160mg) tablet PO ONE (03:55)
[2021-07-13] MEDS ORDERED: ketorolac tromethamine 15mg/ml inj. IM ONE (03:55)
[2021-07-13] MEDS ORDERED: gabapentin 400mg capsule PO ONE (03:55)
[2021-07-13] MEDS ORDERED: morphine 10mg/ml inj. IM ONE (03:55)
[2021-07-13] MEDS ORDERED: SULF1TAB49 PO (04:11)
[2021-07-13] MEDS ORDERED: GABA-534 PO (04:11)
[2021-07-13 04:30] VITALS: BP 120/74
== END 2021-07-13 04:31 | disposition home or self-care (01) ==
LOC: ER 21:43
DX: L03.032 Cellulitis of left toe (principal); M79.89 Other specified soft tissue disorders; E11.42 Type 2 diabetes mellitus with diabetic polyneuropathy; I48.91 Unspecified atrial fibrillation; I50.9 Heart failure, unspecified; J44.9 Chronic obstructive pulmonary disease, unspecified; K21.9 Gastro-esophageal reflux disease without esophagitis; Z88.0 Allergy status to penicillin; Z79.84 Long term (current) use of oral hypoglycemic drugs; Z79.899 Other long term (current) drug therapy
CPT/HCPCS: 73660; 96372; 99284; J1885; J2274

== ENCOUNTER 2022-03-28 06:51 | Inpatient (IN) | payer MEDICARE, MEDICAID ==
[~2022-03-28] VITALS: Ht 167.6 cm; Wt 73.0 kg
[~2022-03-28 06:51] MED LIST changes: -BUDE10.2 INH; +BUPR300T86 PO; +DICY10CA88 PO; -DILT120T3 PO; +DIPH-1055 PO; +EMPA10TA PO; +FLUT1BLS24 PO; -GUAI600T45 PO; +IPRA3AMP31 NEB; -LOP25T PO; -MECL-159 PO; +MECL-231 PO; +METO200T49 PO; -OMEP-50 PO; +OMEP20CA16 PO; -ONDA4TAB6 PO; -SPIIN INH; +SPIR25TA PO; +[UNRECOGNIZED DRUG - CODE] PO
--- NOTE | 2022-03-28 07:08 | NUR ---
dr. Acosta at bedside.
[2022-03-28] MEDS ORDERED: methylPREDNISolone sod succ 125mg/2ml vial IV ONE (07:30)
[2022-03-28] MEDS ORDERED: albuterol 2.5 MG/3 ML nebule CONTNEB PRN (07:30)
[2022-03-28 08:10] LABS: HEMOGLOBIN 13.7 g/dl (12.0-16.0); LYMPHOCYTES # (AUTO) 2.8 X10'3 (1.1-4.8)
[2022-03-28 08:13] LABS: BASOPHILS % (AUTO) 0.3 % (0-1); EOSINOPHILS # (AUTO) 0.2 X10'3 (0-0.9); EOSINOPHILS % (AUTO) 1.1 % (0-6); HEMATOCRIT 43.9 % (35.0-45.0); LYMPHOCYTES % (AUTO) 17.9 % (21-51); MEAN CORPUSCULAR HEMOGLOBIN 27.4 PG (27.0-31.0); MEAN CORPUSCULAR HGB CONC 31.1 g/dL (33.0-36.5); MEAN PLATELET VOLUME 9.8 FL (7.4-10.4); MONOCYTES # (AUTO) 1.5 X10'3 (0-0.9); MONOCYTES % (AUTO) 9.6 % (2-12); NEUTROPHILS # (AUTO) 11.2 X10'3 (1.8-7.7); NEUTROPHILS % (AUTO) 71.1 % (42-75); PLATELET COUNT 225 X10'3 (140-440); RED BLOOD COUNT 4.98 X10'6 (4.20-5.60); WHITE BLOOD COUNT 15.8 X10'3 (4.5-11.0)
[2022-03-28 08:22] LABS: CLARITY,URINE CLEAR (Clear); COLOR,URINE YELLOW (Yellow); GLUCOSE, URINE NEGATIVE (Neg); KETONES,URINE NEGATIVE (Neg); LEUKOCYTE ESTERASE ,URINE NEGATIVE (Neg); NITRITES, URINE NEGATIVE (Neg); OCCULT BLOOD,URINE LARGE (Neg); PROTEIN,URINE >=300 mg/dl (Neg)
[2022-03-28 08:27] LABS: ALANINE AMINOTRANSFERASE 245 U/L (12-78); ALBUMIN 3.4 G/DL (3.4-5.0); ALKALINE PHOSPHATASE 145 IU/L (46-116); ANION GAP 15 (8-16); ASPARTATE AMINO TRANSFERASE 238 U/L (10-37); BLOOD UREA NITROGEN 38 MG/DL (7-18); BUN/CREATININE RATIO 28.8 (6.6-38.0); CALCIUM 9.1 MG/DL (8.5-10.1); CHLORIDE 109 MMOL/L (99-107); CREATININE 1.32 MG/DL (0.40-0.90); GLUCOSE 84 MG/DL (70-104); POTASSIUM 4.7 MMOL/L (3.5-5.1); SODIUM 142 MMOL/L (135-145); TOTAL CARBON DIOXIDE 18.1 MMOL/L (24-32); TOTAL PROTEIN 6.8 G/DL (6.4-8.2); eGFR 40 ML/MIN
[2022-03-28 08:29] LABS: UA COLLECTION TYPE STRAIGHT CATH
[2022-03-28] MEDS ORDERED: metoprolol tartrate 1mg/ml inj IV ONE ×2 (08:35→11:05)
[2022-03-28 08:43] LABS: LARGE PLATELETS FEW; NUCLEATED RED BLOOD CELLS 5 /100WBC (0-0); PLATELET ESTIMATE NORMAL; TOTAL CELLS COUNTED 100
[2022-03-28 08:44] LABS: ANISOCYTOSIS 1+; POLYCHROMASIA 1+
[2022-03-28] MEDS ORDERED: albuterol 2.5 MG/3 ML nebule NEB STA (08:49)
[2022-03-28 08:54] LABS: WBC,URINE TNTC /HPF (0-4)
[2022-03-28 08:55] LABS: BACTERIA,URINE 4+ /HPF (Neg); RBC,URINE 50-100 /HPF (0-2)
[2022-03-28 08:56] LABS: SQUAMOUS EPITHELIAL CELL,UR FEW /LPF (FEW); WBC CLUMPS,URINE FEW /HPF (NEGATIVE)
[2022-03-28] MEDS ORDERED: CefTRIAXone/D5W-Rocephin 1gm 50 ML IV ONE (09:15)
--- NOTE | 2022-03-28 09:25 | NUR ---
requested a diet tray.
[2022-03-28] MEDS ORDERED: ringers solution, lactated 500ml IV solution IV ONE (11:05)
--- NOTE | 2022-03-28 11:31 | NUR ---
Dr. Burch at bedside.
[2022-03-28] MEDS ORDERED: acetaminophen 325mg tablet PO PRN ×2 (11:50)
[2022-03-28] MEDS ORDERED: HYDROcodone/acetaminophen 5mg/325mg tablet PO PRN (11:50)
[2022-03-28] MEDS ORDERED: POTASSIUM BICARB 20meq eff tab 20 MEQ TABLET.EFF PO PRN ×2 (11:50)
[2022-03-28] MEDS ORDERED: morphine 2 MG/ML inj. syringe IV PRN (11:50)
[2022-03-28] MEDS ORDERED: albuterol 2.5 MG/3 ML nebule NEB PRN (11:50)
[2022-03-28] MEDS ORDERED: ondansetron/PF 4mg/2ml inj IV PRN (11:50)
[2022-03-28] MEDS ORDERED: potassium CL 10mEq/100ml bag 100 ML IV PRN (11:50)
[2022-03-28] MEDS ORDERED: magnesium 4gm in 100ml NS 100 ML IV PRN (11:50)
[2022-03-28] MEDS ORDERED: magnesium Cl slow-release 64mg tablet PO PRN (11:50)
[2022-03-28] MEDS ORDERED: magnesium 2GM in 50ml NS 50 ML IV PRN (11:50)
[2022-03-28] MEDS ORDERED: HYDR-3972 PO (12:09)
[2022-03-28] MEDS ORDERED: POTA10CA44 PO (12:09)
[2022-03-28] MEDS ORDERED: FLUT1AER IH (12:09)
[2022-03-28] MEDS ORDERED: TIOT18CA3 INH (12:09)
[2022-03-28] MEDS ORDERED: OMEP40CA21 PO (12:09)
[2022-03-28] MEDS: metoprolol succinate 25mg (24-HOUR) SR. Tablet PO SCH (13:00)
[2022-03-28] MEDS: normal saline 1000ml 1,000 ML IV SCH ×2 (13:00→21:01)
[2022-03-28 14:18] LABS: URINE AMPHETAMINE SCREEN POSITIVE (Neg); URINE BARBITUATE SCREEN NEGATIVE (Neg); URINE BENZODIAZEPINES SCREEN NEGATIVE (Neg); URINE CANNABINOID SCREEN POSITIVE (Neg); URINE COCAINE SCREEN NEGATIVE (Neg); URINE METHADONE SCREEN NEGATIVE (Neg); URINE OPIATE SCREEN POSITIVE (Neg); URINE PHENCYCLIDINE SCREEN NEGATIVE (Neg)
--- NOTE | 2022-03-28 14:29 | NUR ---
patient's hr still 130's, Dr. Burch made aware.Patient started coughing and is wheezy with auscultation,paged RT.
[2022-03-28] MEDS: diltiazem-NS 100mg/100ml 100 ML IV SCH (14:55)
--- NOTE | 2022-03-28 16:30 | NUR ---
Noted patient aflutter with runs of vtach/ non sustained, spoke to Dr. Burch,made aware.Ordered ativan 1mg po every 6 hours. Addendum: 03/28/22 at 1635 by GERTRUDE received a telephone order for ativan 1mg po or iv every 6 hours as needed. Addendum: 03/28/22 at 1735 by GERTRUDE disregard previous notes. Noted ventricular paced.
[2022-03-28] MEDS ORDERED: LORazepam 2 mg/ml vial IV STA (16:32)
[2022-03-28] MEDS ORDERED: LORazepam 2 mg/ml vial IV PRN (16:35)
[2022-03-28 17:53] VITALS: BP 120/84
--- NOTE | 2022-03-28 18:30 | NUR ---
Pt arrived from ED at 1747, cardizem gtt infusing at 10 mg/hr. Raquel CALHOUN reported pt had been on 10 mg /hr for approx 1-1/5 hours , increased from 5 mg/hr. The current order is for 5 mg/hr, this RN decreased the cardizem gtt to 5mg/hr, per present order. Current rate reported to oncmary CALHOUN, Molly during shift report.
--- NOTE | 2022-03-28 18:45 | NUR ---
Problems reprioritized. Patient report given, questions answered & plan of care reviewed with LJ Barnes.
[2022-03-28] MEDS: K and/or MAG REPLACEMENT MC SCH (20:00)
[2022-03-28] MEDS: budesonide 0.5mg/2ml UD nebule IH SCH (20:23)
[2022-03-28] MEDS: heparin, porcine 5000 units/ml vial SQ SCH (20:48)
[2022-03-28] MEDS ORDERED: montelukast 10mg tablet PO SCH (21:00)
[2022-03-28] MEDS ORDERED: temazepam 15mg capsule PO PRN (21:00)
[2022-03-29] MEDS: normal saline 1000ml 1,000 ML IV SCH (05:30)
[2022-03-29 06:00] VITALS: BP 114/83
[2022-03-29 06:57] LABS: BASOPHILS % (AUTO) 0.2 % (0-1); EOSINOPHILS % (AUTO) 0.3 % (0-6); HEMOGLOBIN 12.7 g/dl (12.0-16.0); LYMPHOCYTES # (AUTO) 0.7 X10'3 (1.1-4.8); LYMPHOCYTES % (AUTO) 5.6 % (21-51); MEAN CORPUSCULAR HEMOGLOBIN 27.4 PG (27.0-31.0); MEAN CORPUSCULAR HGB CONC 31.7 g/dL (33.0-36.5); MEAN CORPUSCULAR VOLUME 86.4 FL (78-98); MEAN PLATELET VOLUME 8.8 FL (7.4-10.4); MONOCYTES # (AUTO) 0.6 X10'3 (0-0.9); MONOCYTES % (AUTO) 5.6 % (2-12); NEUTROPHILS # (AUTO) 10.3 X10'3 (1.8-7.7); NEUTROPHILS % (AUTO) 88.3 % (42-75); PLATELET COUNT 146 X10'3 (140-440); RED BLOOD COUNT 4.63 X10'6 (4.20-5.60); WHITE BLOOD COUNT 11.7 X10'3 (4.5-11.0)
[2022-03-29 07:09] LABS: ALANINE AMINOTRANSFERASE 360 U/L (12-78); ALBUMIN 2.9 G/DL (3.4-5.0); ALKALINE PHOSPHATASE 124 IU/L (46-116); ANION GAP 8 (8-16); ASPARTATE AMINO TRANSFERASE 199 U/L (10-37); BILIRUBIN,TOTAL 0.4 MG/DL (0.1-1.0); BLOOD UREA NITROGEN 37 MG/DL (7-18); BUN/CREATININE RATIO 33.6 (6.6-38.0); CALCIUM 8.9 MG/DL (8.5-10.1); GLUCOSE 127 MG/DL (70-104); POTASSIUM 4.7 MMOL/L (3.5-5.1); SODIUM 144 MMOL/L (135-145); TOTAL CARBON DIOXIDE 22.6 MMOL/L (24-32); TOTAL PROTEIN 5.9 G/DL (6.4-8.2); eGFR 50 ML/MIN
[2022-03-29 07:16] LABS: CHLORIDE 113 MMOL/L (99-107)
[2022-03-29] MEDS: diltiazem-NS 100mg/100ml 100 ML IV SCH (07:26)
[2022-03-29] MEDS ORDERED: ipratropium 0.5 MG/2.5ML nebule NEB SCH (08:00)
[2022-03-29] MEDS ORDERED: sertraline 50mg tablet PO SCH (08:00)
[2022-03-29] MEDS ORDERED: CefTRIAXone 2gm/D5W 50ml BAG 50 ML IV SCH (08:00)
[2022-03-29] MEDS ORDERED: buPROPion SR 150mg tablet PO SCH (08:00)
[2022-03-29] MEDS ORDERED: lisinopril 10 MG tablet PO SCH (08:00)
[2022-03-29] MEDS ORDERED: albuterol 2.5 MG/3 ML nebule NEB SCH (08:00)
[2022-03-29] MEDS ORDERED: ipratropium/albuterol 3ml nebule NEB SCH (08:00)
[2022-03-29] MEDS: K and/or MAG REPLACEMENT MC SCH (08:00)
[2022-03-29] MEDS ORDERED: pantoprazole 40mg Tablet.DR PO SCH (08:00)
--- NOTE | 2022-03-29 08:21 | NUR ---
Diabetes consult: Pt w/ hx of DM A1c 5.7 in January of this year. Well controlled and appropriate. DM ed not indicated at this time. Addendum: 03/29/22 at [address] Amended: Links added.
[2022-03-29] MEDS: heparin, porcine 5000 units/ml vial SQ SCH (08:53)
[2022-03-29] MEDS: metoprolol succinate 25mg (24-HOUR) SR. Tablet PO SCH (08:56)
[2022-03-29] MEDS: budesonide 0.5mg/2ml UD nebule IH SCH (08:59)
[2022-03-29] MEDS ORDERED: METO-395 PO (11:10)
[2022-03-29 11:12] VITALS: BP 139/80
[2022-03-29] MEDS ORDERED: FERR324T4 PO (11:12)
[2022-03-29] MEDS ORDERED: CIPR-259 PO (11:12)
--- NOTE | 2022-03-29 13:00 | NUR ---
Patient given discharge papers and aware of new medications at her pharmacy. Patient stated her son will pick her medications up for her. Discharge instructions were discussed with patient.
== END 2022-03-29 13:30 | disposition home health service (06) | DRG 690 ==
LOC: ER 06:52 → ED HOLD 11:55 → PCU 3S 17:48
PROVIDERS: ADMIT Internal Medicine; ATTEND Internal Medicine
DX: N39.0 Urinary tract infection, site not specified (principal); I48.92 Unspecified atrial flutter; I13.0 Hypertensive heart and chronic kidney disease with heart failure and stage 1 through stage 4 chronic kidney disease, or unspecified chronic kidney disease; I50.22 Chronic systolic (congestive) heart failure; I48.20 Chronic atrial fibrillation, unspecified; Z20.822 Contact with and (suspected) exposure to COVID-19; I27.20 Pulmonary hypertension, unspecified; D63.8 Anemia in other chronic diseases classified elsewhere; E78.5 Hyperlipidemia, unspecified; F32.A Depression, unspecified; R31.9 Hematuria, unspecified; E11.22 Type 2 diabetes mellitus with diabetic chronic kidney disease; N18.9 Chronic kidney disease, unspecified; F41.9 Anxiety disorder, unspecified; Z60.2 Problems related to living alone; F12.90 Cannabis use, unspecified, uncomplicated; R79.89 Other specified abnormal findings of blood chemistry; I25.10 Atherosclerotic heart disease of native coronary artery without angina pectoris; J44.9 Chronic obstructive pulmonary disease, unspecified; K21.9 Gastro-esophageal reflux disease without esophagitis; M15.9 Polyosteoarthritis, unspecified; Z87.891 Personal history of nicotine dependence; I25.2 Old myocardial infarction; Z95.3 Presence of xenogenic heart valve; Z88.0 Allergy status to penicillin
CPT/HCPCS: 36415; 71045; 80053; 80305; 81001; 82948; 83605; 83880; 84145; 84484; 85007; 85025; 87040; 87077; 87081; 87088; 87186; 87502; 87503; 87635; 93005; 94640; 94760; 96374; 96375; 99285; A4353; A6449; C9803; G0378; J0696; J1644; J2060; J2930; J3490; J7030; J7120

== ENCOUNTER 2022-04-12 11:26 | Inpatient (IN) | payer MEDICARE, MEDICAID ==
[~2022-04-12] VITALS: Ht 165.1 cm; Wt 95.0 kg
[~2022-04-12 11:26] MED LIST changes: -ATOR20TA66 PO; -DICY10CA88 PO; -DIPH-1055 PO; -EMPA10TA PO; +FERR324T4 PO; -FERR325T39 PO; -MECL-231 PO; -METF500T PO; +METO-395 PO; -METO200T49 PO; -OMEP20CA16 PO; +OMEP40CA21 PO; -SPIR25TA PO; -[UNRECOGNIZED DRUG - CODE] PO
[2022-04-12] MEDS ORDERED: normal saline 500ml IV soln 500 ML IV ONE (11:55)
[2022-04-12 12:27] LABS: BASOPHILS # (AUTO) 0.1 X10'3 (0-0.2); MONOCYTES # (AUTO) 0.7 X10'3 (0-0.9); NEUTROPHILS # (AUTO) 6.6 X10'3 (1.8-7.7)
[2022-04-12 12:29] LABS: BASOPHILS % (AUTO) 0.7 % (0-1); EOSINOPHILS # (AUTO) 0.1 X10'3 (0-0.9); EOSINOPHILS % (AUTO) 0.6 % (0-6); LYMPHOCYTES # (AUTO) 1.4 X10'3 (1.1-4.8); LYMPHOCYTES % (AUTO) 15.9 % (21-51); MEAN PLATELET VOLUME 9.8 FL (7.4-10.4); MONOCYTES % (AUTO) 7.8 % (2-12); PLATELET COUNT 113 X10'3 (140-440); WHITE BLOOD COUNT 8.7 X10'3 (4.5-11.0)
[2022-04-12 12:47] LABS: ALANINE AMINOTRANSFERASE 220 U/L (12-78); ALBUMIN 2.9 G/DL (3.4-5.0); ALBUMIN/GLOBULIN RATIO 0.8 (1.1-1.5); ALKALINE PHOSPHATASE 314 IU/L (46-116); ANION GAP 13 (8-16); ASPARTATE AMINO TRANSFERASE 56 U/L (10-37); BILIRUBIN,TOTAL 2.1 MG/DL (0.1-1.0); BLOOD UREA NITROGEN 32 MG/DL (7-18); BUN/CREATININE RATIO 24.8 (6.6-38.0); CALCIUM 9.1 MG/DL (8.5-10.1); CHLORIDE 106 MMOL/L (99-107); CREATININE 1.29 MG/DL (0.40-0.90); GLUCOSE 76 MG/DL (70-104); SODIUM 139 MMOL/L (135-145); TOTAL CARBON DIOXIDE 19.9 MMOL/L (24-32); TOTAL PROTEIN 6.4 G/DL (6.4-8.2); eGFR 41 ML/MIN
[2022-04-12 12:53] LABS: LIPASE < 50 U/L (73-393); MAGNESIUM 1.9 MG/DL (1.5-2.4)
[2022-04-12 12:55] LABS: POTASSIUM 5.6 MMOL/L (3.5-5.1)
[2022-04-12 12:59] LABS: RED BLOOD COUNT 5.65 X10'6 (4.20-5.60)
[2022-04-12 13:00] LABS: HEMATOCRIT 50.8 % (35.0-45.0); HEMOGLOBIN 15.9 g/dl (12.0-16.0); MEAN CORPUSCULAR HEMOGLOBIN 28.2 PG (27.0-31.0); MEAN CORPUSCULAR HGB CONC 31.4 g/dL (33.0-36.5); MEAN CORPUSCULAR VOLUME 89.8 FL (78-98); RED CELL DISTRIBUTION WIDTH 22.5 % (11.5-14.5)
[2022-04-12 13:02] LABS: ANISOCYTOSIS 3+; PLATELET ESTIMATE DECREASED
[2022-04-12 13:04] LABS: GIANT PLATELET FEW; LARGE PLATELETS FEW; POLYCHROMASIA FEW
[2022-04-12] MEDS ORDERED: furosemide 10 MG/1 ML 10ml inj IV ONE (13:05)
[2022-04-12] MEDS ORDERED: diltiazem 5mg/ml 5ml inj. IV ONE (13:40)
--- NOTE | 2022-04-12 14:11 | NUR ---
DR COHEN MADE AWARE OF BP 86/66 AFTER 5MG CARDIZEM IVP (SEE EMAR).
[2022-04-12] MEDS ORDERED: normal saline 1000ML IV soln IVB ONE ×2 (14:15→17:15)
[2022-04-12] MEDS ORDERED: FERR-106 PO (14:18)
[2022-04-12] MEDS ORDERED: METO200T49 PO (14:21)
[2022-04-12] MEDS ORDERED: DICY10CA88 PO (14:26)
[2022-04-12] MEDS ORDERED: OMEP20CA16 PO (14:26)
[2022-04-12] MEDS ORDERED: METF-1203 PO (14:26)
[2022-04-12] MEDS ORDERED: SACU1TAB PO (14:30)
[2022-04-12] MEDS ORDERED: EMPA10TA PO (14:30)
[2022-04-12] MEDS ORDERED: DILT120T3 PO (14:30)
[2022-04-12] MEDS ORDERED: IBUP-1985 PO (14:30)
[2022-04-12] MEDS ORDERED: FURO40TA4 PO (14:30)
[2022-04-12] MEDS ORDERED: MONT-40 PO (14:30)
[2022-04-12] MEDS ORDERED: ALBU17AE26 IH (14:30)
[2022-04-12] MEDS ORDERED: SPIR25TA5 PO (14:30)
[2022-04-12] MEDS ORDERED: POTA-188 PO (14:30)
[2022-04-12] MEDS ORDERED: DIPH-1055 PO (14:30)
--- NOTE | 2022-04-12 14:43 | NUR ---
DR COHEN MADE AWARE OF BP 104/69 AFTER 250 ML BOLUS OF NS, STATES SHE WILL CONSULT WITH MEDICAL OFFICER FOR CARE PLAN.
[2022-04-12] MEDS ORDERED: NITR0.4T48 SL (15:00)
[2022-04-12] MEDS ORDERED: morphine 2 MG/ML inj. syringe IV PRN ×2 (15:40)
[2022-04-12] MEDS ORDERED: MESSAGE TO PHARMACY PO ONE (15:40)
[2022-04-12] MEDS ORDERED: dextrose 50%-water 50ml dispensing syringe IV PRN ×2 (15:40)
[2022-04-12] MEDS ORDERED: ondansetron/PF 4mg/2ml inj IV PRN (15:40)
[2022-04-12] MEDS ORDERED: glucagon, human recombinant 1mg kit SUBCUT PRN (15:40)
[2022-04-12] MEDS ORDERED: magnesium hydroxide 30ml (MOM) UD suspension PO PRN (15:40)
[2022-04-12] MEDS ORDERED: DEXTROSE 15 GM of carb/4 tabs (each vial/BOTTLE has 4 tablets) PO PRN ×2 (15:40)
[2022-04-12] MEDS ORDERED: acetaminophen 325mg tablet PO PRN ×2 (15:40)
[2022-04-12] MEDS ORDERED: HYDROcodone/acetaminophen 5mg/325mg tablet PO PRN (15:40)
[2022-04-12] MEDS ORDERED: insulin Lispro (HumaLOG) vial - multi-dose SQ SCH (15:40)
[2022-04-12] MEDS ORDERED: HYDROcodone/acetaminophen 10/325mg tab PO PRN (15:40)
[2022-04-12] MEDS ORDERED: mag hydrox/Alum hydrox/simeth 30ml oral suspension PO PRN (15:40)
[2022-04-12] MEDS ORDERED: ibuprofen 200mg tablet PO PRN (15:40)
[2022-04-12] MEDS ORDERED: amiodarone 150mg/dext, iso-os 100 ML IV ONE (16:45)
[2022-04-12] MEDS: amiodarone/D5 360MG/200ML BAG 200 ML IV SCH ×2 (17:54→23:17)
[2022-04-12] MEDS: insulin glargine (Lantus) pen - multi-dose SQ SCH (18:51)
--- NOTE | 2022-04-12 19:13 | NUR ---
PT WAS ON THE BS COMMODE, REFUSED TO HAVE MALE TECHS ASSIST HER. ASSISTED PT BACK TO BED AFTER SHE WAS CLEANSED UP OF INCONTINENT STOOL THAT WAS ON HER/FLOOR. BACK TO BED, TORI CARE AND FOOT CARE DONE, CLEANSED. FRESH GOWN, FRESH GRIPPER SOCKS. PT WAS SOB WITH STANDING, HER HR INCREASED TO 127. BACK TO BED SHE WAS NO LONGER SOB AND TALKING FULL SENTENCES. PRIMARY RN MADE AWARE.
[2022-04-12 19:30] VITALS: BP 86/55
[2022-04-12] MEDS: docusate sod 100mg capsule PO SCH (20:00)
[2022-04-12] MEDS ORDERED: diltiazem 30mg tablet PO SCH (20:00)
[2022-04-12] MEDS ORDERED: metoprolol succinate 25mg (24-HOUR) SR. Tablet PO SCH (20:00)
[2022-04-12] MEDS ORDERED: furosemide 20 MG/2 ML vial IV SCH (20:00)
[2022-04-12] MEDS: budesonide 0.5mg/2ml UD nebule IH SCH (20:49)
[2022-04-12 21:00] VITALS: BP 107/83
[2022-04-12] MEDS: diphenhydrAMINE 25mg capsule PO SCH (21:41)
[2022-04-12] MEDS: pantoprazole 40mg Tablet.DR PO SCH (21:41)
[2022-04-12] MEDS: montelukast 10mg tablet PO SCH (21:41)
[2022-04-12] MEDS: apixaban 5mg tablet PO SCH (21:41)
[2022-04-12] MEDS: HYDROcodone/acetaminophen 10/325mg tab PO SCH (21:41)
[2022-04-12 22:00] VITALS: BP 83/53
[2022-04-12 23:00] VITALS: BP 109/78
[2022-04-13] VITALS (17 sets, daily range): BP systolic 82–119; BP diastolic 53–84
--- NOTE | 2022-04-13 01:58 | NUR ---
Pt stating she cant breath, coughing up very thick mucus. Reporting chest pain. MD notified, new orders. Pt requesting a CPAP for night. Chest pain resolved quickly.
[2022-04-13] MEDS: nitroGLYCERIN 0.4mg SUBLingual tab SL PRN (02:20)
[2022-04-13 07:13] LABS: BASOPHILS # (AUTO) 0.1 X10'3 (0-0.2); EOSINOPHILS # (AUTO) 0.2 X10'3 (0-0.9); LYMPHOCYTES # (AUTO) 2.6 X10'3 (1.1-4.8); MEAN CORPUSCULAR HEMOGLOBIN 28.4 PG (27.0-31.0); WHITE BLOOD COUNT 8.4 X10'3 (4.5-11.0)
[2022-04-13 07:15] LABS: BASOPHILS % (AUTO) 1.1 % (0-1); HEMOGLOBIN 15.9 g/dl (12.0-16.0); LYMPHOCYTES % (AUTO) 30.9 % (21-51); MEAN CORPUSCULAR HGB CONC 31.8 g/dL (33.0-36.5); MEAN CORPUSCULAR VOLUME 89.3 FL (78-98); MEAN PLATELET VOLUME 9.9 FL (7.4-10.4); MONOCYTES # (AUTO) 0.9 X10'3 (0-0.9); MONOCYTES % (AUTO) 10.2 % (2-12); NEUTROPHILS # (AUTO) 4.7 X10'3 (1.8-7.7); NEUTROPHILS % (AUTO) 55.8 % (42-75); RED CELL DISTRIBUTION WIDTH 24.6 % (11.5-14.5)
[2022-04-13 07:16] LABS: PLATELET COUNT 109 X10'3 (140-440)
[2022-04-13 07:34] LABS: ALANINE AMINOTRANSFERASE 166 U/L (12-78); ALBUMIN 2.8 G/DL (3.4-5.0); ALBUMIN/GLOBULIN RATIO 0.8 (1.1-1.5); ALKALINE PHOSPHATASE 297 IU/L (46-116); ANION GAP 11 (8-16); ASPARTATE AMINO TRANSFERASE 36 U/L (10-37); BILIRUBIN,TOTAL 1.2 MG/DL (0.1-1.0); BLOOD UREA NITROGEN 36 MG/DL (7-18); BUN/CREATININE RATIO 21.3 (6.6-38.0); CALCIUM 8.8 MG/DL (8.5-10.1); CHLORIDE 105 MMOL/L (99-107); CREATININE 1.69 MG/DL (0.40-0.90); GLUCOSE 119 MG/DL (70-104); POTASSIUM 4.9 MMOL/L (3.5-5.1); SODIUM 138 MMOL/L (135-145); TOTAL CARBON DIOXIDE 22.1 MMOL/L (24-32); TOTAL PROTEIN 6.1 G/DL (6.4-8.2); eGFR 30 ML/MIN
[2022-04-13] MEDS ORDERED: ipratropium/albuterol 3ml nebule NEB SCH (08:00)
[2022-04-13] MEDS: albuterol 2.5 MG/3 ML nebule NEB SCH ×3 (08:00→15:02)
[2022-04-13] MEDS: HYDROcodone/acetaminophen 10/325mg tab PO SCH ×3 (08:00→20:28)
[2022-04-13] MEDS: sertraline 50mg tablet PO SCH (08:10)
[2022-04-13] MEDS: docusate sod 100mg capsule PO SCH ×2 (08:10→20:00)
[2022-04-13] MEDS: dicyclomine 10 MG capsule PO SCH (08:10)
[2022-04-13] MEDS: pantoprazole 40mg Tablet.DR PO SCH (08:10)
[2022-04-13] MEDS: diphenhydrAMINE 25mg capsule PO SCH ×2 (08:10→20:28)
[2022-04-13] MEDS: apixaban 5mg tablet PO SCH ×2 (08:11→20:28)
[2022-04-13] MEDS: ferrous sulfate 325mg tablet PO SCH (08:12)
[2022-04-13] MEDS: potassium chloride 10mEq ER tablet PO SCH (08:12)
[2022-04-13] MEDS: buPROPion SR 150mg tablet PO SCH (08:13)
[2022-04-13] MEDS: budesonide 0.5mg/2ml UD nebule IH SCH ×2 (08:47→22:01)
[2022-04-13] MEDS: amiodarone/D5 360MG/200ML BAG 200 ML IV SCH ×3 (13:08→20:34)
[2022-04-13] MEDS ORDERED: diltiazem 30mg tablet PO SCH (14:00)
--- NOTE | 2022-04-13 15:59 | NUR ---
PAGER ID: [phone] Dr Santoyo MESSAGE: [phone], Cyrus, wants to be d/c in AM, has a ride to HD tomorrow. Lisa [phone] Addendum: 04/13/22 at 1636 by Lisa Acosta RN This note was made on incorrect patient.
[2022-04-13] MEDS ORDERED: ipratropium 0.5 MG/2.5ML nebule IH PRN (17:05)
[2022-04-13] MEDS: montelukast 10mg tablet PO SCH (20:28)
[2022-04-13] MEDS: insulin glargine (Lantus) pen - multi-dose SQ SCH (21:00)
[2022-04-13] MEDS: levalbuterol 0.63mg/3ml nebule IH SCH (22:00)
[2022-04-14] VITALS (23 sets, daily range): BP systolic 87–123; BP diastolic 55–91
[2022-04-14] MEDS: amiodarone/D5 360MG/200ML BAG 200 ML IV SCH ×2 (00:12→12:21)
[2022-04-14] MEDS: levalbuterol 0.63mg/3ml nebule IH SCH ×4 (02:15→20:03)
[2022-04-14 07:11] LABS: BASOPHILS # (AUTO) 0.1 X10'3 (0-0.2); BASOPHILS % (AUTO) 0.7 % (0-1); EOSINOPHILS # (AUTO) 0.1 X10'3 (0-0.9); EOSINOPHILS % (AUTO) 1.4 % (0-6); HEMATOCRIT 43.2 % (35.0-45.0); HEMOGLOBIN 13.5 g/dl (12.0-16.0); LYMPHOCYTES % (AUTO) 12.1 % (21-51); MEAN CORPUSCULAR HEMOGLOBIN 27.9 PG (27.0-31.0); MEAN CORPUSCULAR HGB CONC 31.2 g/dL (33.0-36.5); MEAN CORPUSCULAR VOLUME 89.3 FL (78-98); MEAN PLATELET VOLUME 10.2 FL (7.4-10.4); MONOCYTES # (AUTO) 0.7 X10'3 (0-0.9); MONOCYTES % (AUTO) 8.2 % (2-12); NEUTROPHILS # (AUTO) 6.3 X10'3 (1.8-7.7); NEUTROPHILS % (AUTO) 77.6 % (42-75); PLATELET COUNT 102 X10'3 (140-440); RED BLOOD COUNT 4.84 X10'6 (4.20-5.60); RED CELL DISTRIBUTION WIDTH 23.9 % (11.5-14.5); WHITE BLOOD COUNT 8.1 X10'3 (4.5-11.0)
[2022-04-14 07:37] LABS: ALANINE AMINOTRANSFERASE 124 U/L (12-78); ALBUMIN 2.6 G/DL (3.4-5.0); ALBUMIN/GLOBULIN RATIO 0.9 (1.1-1.5); ALKALINE PHOSPHATASE 237 IU/L (46-116); ANION GAP 12 (8-16); ASPARTATE AMINO TRANSFERASE 24 U/L (10-37); BILIRUBIN,TOTAL 0.9 MG/DL (0.1-1.0); BLOOD UREA NITROGEN 36 MG/DL (7-18); BUN/CREATININE RATIO 21.4 (6.6-38.0); CALCIUM 8.4 MG/DL (8.5-10.1); CHLORIDE 105 MMOL/L (99-107); CREATININE 1.68 MG/DL (0.40-0.90); GLUCOSE 102 MG/DL (70-104); POTASSIUM 4.1 MMOL/L (3.5-5.1); SODIUM 138 MMOL/L (135-145); TOTAL PROTEIN 5.5 G/DL (6.4-8.2); eGFR 30 ML/MIN
[2022-04-14 08:12] LABS: ANISOCYTOSIS 3+; ELLIPTOCYTES 1+; PLATELET ESTIMATE DECREASED
[2022-04-14] MEDS: budesonide 0.5mg/2ml UD nebule IH SCH ×2 (08:40→20:03)
[2022-04-14] MEDS: buPROPion SR 150mg tablet PO SCH (08:58)
[2022-04-14] MEDS: potassium chloride 10mEq ER tablet PO SCH (08:58)
[2022-04-14] MEDS: dicyclomine 10 MG capsule PO SCH (08:58)
[2022-04-14] MEDS: sertraline 50mg tablet PO SCH (08:58)
[2022-04-14] MEDS: ferrous sulfate 325mg tablet PO SCH (08:59)
[2022-04-14] MEDS: apixaban 5mg tablet PO SCH ×2 (08:59→20:49)
[2022-04-14] MEDS: pantoprazole 40mg Tablet.DR PO SCH (08:59)
[2022-04-14] MEDS: docusate sod 100mg capsule PO SCH ×2 (08:59→20:49)
[2022-04-14] MEDS: diphenhydrAMINE 25mg capsule PO SCH ×2 (08:59→20:49)
[2022-04-14] MEDS: HYDROcodone/acetaminophen 10/325mg tab PO SCH ×2 (09:00→20:50)
[2022-04-14] MEDS ORDERED: fentaNYL/PF 50MCG/1 ML 2ML syringe IV ONE (11:45)
[2022-04-14] MEDS ORDERED: midazolam 1 mg/ML 2ml injection IV ONE (11:45)
[2022-04-14] MEDS ORDERED: MIDAZolam 1mg/ml 10ml vial IV ONE (12:25)
--- NOTE | 2022-04-14 13:45 | NUR ---
Cardioversion performed bedside, Abelardo Wilson, COMPUTER AIDED DESIGN OPERATOR, RT, 2RN;s present, Pr procedure pt cardiac rhythm atrial fluter , rate of 128. Pt received 2 mg versed, 50 mcg fentanyl prior to procedure. 1 shock 200 joules delivered. Pt cardiac rhythm sinus HR 65.Pt tolerated procedure well.
[2022-04-14] MEDS ORDERED: ondansetron 4mg rapidly disintigrating tab PO PRN (17:05)
[2022-04-14] MEDS: amiodarone 200mg tablet PO SCH (20:49)
[2022-04-14] MEDS: montelukast 10mg tablet PO SCH (20:50)
[2022-04-14] MEDS: insulin glargine (Lantus) pen - multi-dose SQ SCH (21:00)
[2022-04-15 02:00] VITALS: BP 101/62
[2022-04-15] MEDS: levalbuterol 0.63mg/3ml nebule IH SCH ×4 (03:44→20:51)
[2022-04-15 06:43] LABS: BASOPHILS % (AUTO) 0.5 % (0-1); EOSINOPHILS # (AUTO) 0.1 X10'3 (0-0.9); EOSINOPHILS % (AUTO) 2.1 % (0-6); LYMPHOCYTES # (AUTO) 0.7 X10'3 (1.1-4.8); LYMPHOCYTES % (AUTO) 12.8 % (21-51); MEAN PLATELET VOLUME 11.1 FL (7.4-10.4); MONOCYTES # (AUTO) 0.5 X10'3 (0-0.9); NEUTROPHILS # (AUTO) 3.8 X10'3 (1.8-7.7); NEUTROPHILS % (AUTO) 75.6 % (42-75); PLATELET COUNT 68 X10'3 (140-440); WHITE BLOOD COUNT 5.1 X10'3 (4.5-11.0)
[2022-04-15 06:57] LABS: ALANINE AMINOTRANSFERASE 92 U/L (12-78); ALBUMIN 2.5 G/DL (3.4-5.0); ALBUMIN/GLOBULIN RATIO 0.9 (1.1-1.5); ALKALINE PHOSPHATASE 204 IU/L (46-116); ANION GAP 9 (8-16); ASPARTATE AMINO TRANSFERASE 19 U/L (10-37); BILIRUBIN,TOTAL 0.8 MG/DL (0.1-1.0); BLOOD UREA NITROGEN 36 MG/DL (7-18); BUN/CREATININE RATIO 23.7 (6.6-38.0); CALCIUM 8.6 MG/DL (8.5-10.1); CHLORIDE 107 MMOL/L (99-107); CREATININE 1.52 MG/DL (0.40-0.90); GLUCOSE 90 MG/DL (70-104); POTASSIUM 4.4 MMOL/L (3.5-5.1); SODIUM 140 MMOL/L (135-145); TOTAL PROTEIN 5.3 G/DL (6.4-8.2); eGFR 34 ML/MIN
[2022-04-15 07:35] VITALS: BP 99/69
[2022-04-15 07:42] LABS: HEMATOCRIT 37.6 % (35.0-45.0); HEMOGLOBIN 11.8 g/dl (12.0-16.0); MEAN CORPUSCULAR HEMOGLOBIN 28.4 PG (27.0-31.0); MEAN CORPUSCULAR HGB CONC 31.5 g/dL (33.0-36.5); MEAN CORPUSCULAR VOLUME 90.1 FL (78-98); RED BLOOD COUNT 4.18 X10'6 (4.20-5.60); RED CELL DISTRIBUTION WIDTH 23.2 % (11.5-14.5)
[2022-04-15] MEDS: buPROPion SR 150mg tablet PO SCH (07:55)
[2022-04-15] MEDS: sertraline 50mg tablet PO SCH (07:55)
[2022-04-15] MEDS: ferrous sulfate 325mg tablet PO SCH (07:55)
[2022-04-15] MEDS: diphenhydrAMINE 25mg capsule PO SCH ×2 (07:56→19:30)
[2022-04-15] MEDS: dicyclomine 10 MG capsule PO SCH (07:56)
[2022-04-15] MEDS: HYDROcodone/acetaminophen 10/325mg tab PO SCH ×2 (07:56→19:30)
[2022-04-15] MEDS: potassium chloride 10mEq ER tablet PO SCH (07:56)
[2022-04-15] MEDS: amiodarone 200mg tablet PO SCH ×2 (07:56→19:30)
[2022-04-15] MEDS: apixaban 5mg tablet PO SCH ×2 (07:56→19:31)
[2022-04-15] MEDS: pantoprazole 40mg Tablet.DR PO SCH (07:56)
[2022-04-15] MEDS: docusate sod 100mg capsule PO SCH ×2 (08:00→19:31)
[2022-04-15] MEDS: metoprolol succinate 25mg (24-HOUR) SR. Tablet PO SCH (08:00)
[2022-04-15] MEDS: budesonide 0.5mg/2ml UD nebule IH SCH ×2 (08:45→20:51)
--- NOTE | 2022-04-15 15:21 | NUR ---
PT C/O Chest pain 04/03; VS 111/67, 66hr, 22rr, 97%; 2mg Morphine IVP given d/t pt's low bp in am. post IVP morphine vs 122/72 96% 67hr, 24rr. Addendum: 04/15/22 at 1529 by Lena Acosta RN 1 dose SL nitro; post vs 109/69, 68hr, 95% 22rr. Addendum: 04/15/22 at 1538 by Lena Acosta RN 2nd dose SL Nitro given; post vs 95/61 then back up to 101/55 with rising pain. 02/01 Addendum: 04/15/22 at 1549 by Lena Acosta RN 3rd dose SL nitro given; post vs 96/60. [place] given and pt placed on home cpap. Addendum: 04/15/22 at 1550 by Lena Acosta RN o2 98%on cpap, 68hr 20rr.
[2022-04-15] MEDS: nitroGLYCERIN 0.4mg SUBLingual tab SL PRN ×2 (15:24→15:31)
--- NOTE | 2022-04-15 15:26 | NUR ---
Page Sent promotional table spacer PAGER ID: [phone] MESSAGE: [phone] LORNA. PT HAS CHEST PAIN GIVEN , MORPHINE, AND SL NITRO X1 . EKG OBTAINED PER PROTOCOL. WE NEED YOU TO READ IT . CAN I BRING IT TO YOU - CORDELL @2210
[2022-04-15 18:00] VITALS: BP 113/70
--- NOTE | 2022-04-15 18:29 | NUR ---
Patient in room PCU 3011. I have received report from Lena CALHOUN and had the opportunity to ask questions and assume patient care.
[2022-04-15] MEDS: insulin glargine (Lantus) pen - multi-dose SQ SCH (21:00)
[2022-04-15] MEDS: montelukast 10mg tablet PO SCH (21:45)
[2022-04-15 22:00] VITALS: BP 122/70
[2022-04-16] MEDS: levalbuterol 0.63mg/3ml nebule IH SCH ×4 (04:22→20:44)
[2022-04-16 06:00] VITALS: BP 97/58
--- NOTE | 2022-04-16 06:33 | NUR ---
Problems reprioritized. Patient report given, questions answered & plan of care reviewed with Lena CALHOUN.
[2022-04-16 07:00] LABS: BASOPHILS % (AUTO) 0.7 % (0-1); EOSINOPHILS # (AUTO) 0.1 X10'3 (0-0.9); EOSINOPHILS % (AUTO) 2.1 % (0-6); HEMATOCRIT 37.7 % (35.0-45.0); HEMOGLOBIN 11.9 g/dl (12.0-16.0); LYMPHOCYTES # (AUTO) 0.5 X10'3 (1.1-4.8); MEAN CORPUSCULAR HEMOGLOBIN 27.9 PG (27.0-31.0); MEAN CORPUSCULAR HGB CONC 31.5 g/dL (33.0-36.5); MEAN CORPUSCULAR VOLUME 88.4 FL (78-98); MEAN PLATELET VOLUME 10.3 FL (7.4-10.4); MONOCYTES # (AUTO) 0.4 X10'3 (0-0.9); MONOCYTES % (AUTO) 9.6 % (2-12); NEUTROPHILS # (AUTO) 3.1 X10'3 (1.8-7.7); NEUTROPHILS % (AUTO) 76.6 % (42-75); PLATELET COUNT 62 X10'3 (140-440); RED BLOOD COUNT 4.26 X10'6 (4.20-5.60); RED CELL DISTRIBUTION WIDTH 23.6 % (11.5-14.5); WHITE BLOOD COUNT 4.1 X10'3 (4.5-11.0)
[2022-04-16 07:18] LABS: ALANINE AMINOTRANSFERASE 75 U/L (12-78); ALBUMIN 2.4 G/DL (3.4-5.0); ALBUMIN/GLOBULIN RATIO 0.8 (1.1-1.5); ALKALINE PHOSPHATASE 182 IU/L (46-116); ANION GAP 11 (8-16); ASPARTATE AMINO TRANSFERASE 24 U/L (10-37); BLOOD UREA NITROGEN 34 MG/DL (7-18); BUN/CREATININE RATIO 29.8 (6.6-38.0); CALCIUM 8.4 MG/DL (8.5-10.1); CHLORIDE 109 MMOL/L (99-107); CREATININE 1.14 MG/DL (0.40-0.90); GLUCOSE 71 MG/DL (70-104); POTASSIUM 4.3 MMOL/L (3.5-5.1); SODIUM 139 MMOL/L (135-145); TOTAL CARBON DIOXIDE 18.9 MMOL/L (24-32); TOTAL PROTEIN 5.5 G/DL (6.4-8.2); eGFR 48 ML/MIN
[2022-04-16] MEDS: amiodarone 200mg tablet PO SCH ×2 (07:29→20:33)
[2022-04-16] MEDS: metoprolol succinate 25mg (24-HOUR) SR. Tablet PO SCH (07:29)
[2022-04-16] MEDS: docusate sod 100mg capsule PO SCH ×2 (07:29→20:31)
[2022-04-16] MEDS: pantoprazole 40mg Tablet.DR PO SCH (07:29)
[2022-04-16] MEDS: buPROPion SR 150mg tablet PO SCH (07:29)
[2022-04-16] MEDS: ferrous sulfate 325mg tablet PO SCH (07:29)
[2022-04-16] MEDS: dicyclomine 10 MG capsule PO SCH (07:29)
[2022-04-16] MEDS: diphenhydrAMINE 25mg capsule PO SCH ×2 (07:29→20:31)
[2022-04-16] MEDS: sertraline 50mg tablet PO SCH (07:29)
[2022-04-16] MEDS: potassium chloride 10mEq ER tablet PO SCH (07:30)
[2022-04-16] MEDS: apixaban 5mg tablet PO SCH ×2 (07:30→20:33)
[2022-04-16] MEDS: HYDROcodone/acetaminophen 10/325mg tab PO SCH ×2 (07:30→20:33)
--- NOTE | 2022-04-16 08:16 | NUR ---
Initial: Pt admitted w/ Afib and CHF exacerbation per EMR. Currently on Heart Healthy/Carb control diet w/ 100% intake of meals meeting est needs a this time. Recommend removal of Carb control restriction given A1c 5.7 two months ago. [facility] 04/14 receiving routine bowel care. Will continue to monitor. Recs; 1. Continue Heart Healthy diet, Remove Carb control diet; A1c 5.7 2. Bowel care per rx 3. Weekly wts Addendum: 04/16/22 at [address] Amended: Links added.
[2022-04-16] MEDS: budesonide 0.5mg/2ml UD nebule IH SCH ×2 (09:14→20:44)
[2022-04-16 11:00] VITALS: BP 109/66
[2022-04-16] MEDS: furosemide 20 MG/2 ML vial IV SCH ×2 (11:25→20:33)
[2022-04-16 15:34] VITALS: BP 107/75
[2022-04-16 18:00] VITALS: BP 103/55
[2022-04-16] MEDS: montelukast 10mg tablet PO SCH (20:33)
[2022-04-16] MEDS: insulin glargine (Lantus) pen - multi-dose SQ SCH (21:00)
[2022-04-16 22:00] VITALS: BP 109/68
[2022-04-17 02:00] VITALS: BP 106/63
[2022-04-17] MEDS: levalbuterol 0.63mg/3ml nebule IH SCH ×3 (03:00→14:20)
[2022-04-17 06:00] VITALS: BP 123/69
[2022-04-17 06:41] LABS: BASOPHILS % (AUTO) 0.8 % (0-1); EOSINOPHILS # (AUTO) 0.1 X10'3 (0-0.9); EOSINOPHILS % (AUTO) 1.5 % (0-6); HEMATOCRIT 38.5 % (35.0-45.0); LYMPHOCYTES # (AUTO) 0.5 X10'3 (1.1-4.8); LYMPHOCYTES % (AUTO) 9.7 % (21-51); MEAN CORPUSCULAR HEMOGLOBIN 27.8 PG (27.0-31.0); MEAN CORPUSCULAR HGB CONC 31.1 g/dL (33.0-36.5); MEAN CORPUSCULAR VOLUME 89.4 FL (78-98); MEAN PLATELET VOLUME 10.5 FL (7.4-10.4); MONOCYTES # (AUTO) 0.3 X10'3 (0-0.9); MONOCYTES % (AUTO) 6.9 % (2-12); NEUTROPHILS # (AUTO) 4.1 X10'3 (1.8-7.7); NEUTROPHILS % (AUTO) 81.1 % (42-75); PLATELET COUNT 74 X10'3 (140-440); RED BLOOD COUNT 4.31 X10'6 (4.20-5.60); RED CELL DISTRIBUTION WIDTH 23.7 % (11.5-14.5)
[2022-04-17 06:50] LABS: ALANINE AMINOTRANSFERASE 64 U/L (12-78); ALBUMIN 2.7 G/DL (3.4-5.0); ALBUMIN/GLOBULIN RATIO 0.9 (1.1-1.5); ALKALINE PHOSPHATASE 188 IU/L (46-116); ANION GAP 8 (8-16); ASPARTATE AMINO TRANSFERASE 22 U/L (10-37); BILIRUBIN,TOTAL 1.2 MG/DL (0.1-1.0); BLOOD UREA NITROGEN 30 MG/DL (7-18); BUN/CREATININE RATIO 23.4 (6.6-38.0); CALCIUM 8.3 MG/DL (8.5-10.1); CHLORIDE 108 MMOL/L (99-107); CREATININE 1.28 MG/DL (0.40-0.90); GLUCOSE 77 MG/DL (70-104); POTASSIUM 3.5 MMOL/L (3.5-5.1); SODIUM 142 MMOL/L (135-145); TOTAL CARBON DIOXIDE 25.9 MMOL/L (24-32); TOTAL PROTEIN 5.8 G/DL (6.4-8.2); eGFR 42 ML/MIN
[2022-04-17] MEDS: budesonide 0.5mg/2ml UD nebule IH SCH (07:56)
[2022-04-17] MEDS: docusate sod 100mg capsule PO SCH (08:00)
[2022-04-17] MEDS: furosemide 20 MG/2 ML vial IV SCH (08:05)
[2022-04-17] MEDS: metoprolol succinate 25mg (24-HOUR) SR. Tablet PO SCH (08:06)
[2022-04-17] MEDS: dicyclomine 10 MG capsule PO SCH (08:06)
[2022-04-17] MEDS: diphenhydrAMINE 25mg capsule PO SCH (08:06)
[2022-04-17] MEDS: amiodarone 200mg tablet PO SCH (08:06)
[2022-04-17] MEDS: buPROPion SR 150mg tablet PO SCH (08:06)
[2022-04-17] MEDS: potassium chloride 10mEq ER tablet PO SCH (08:06)
[2022-04-17] MEDS: pantoprazole 40mg Tablet.DR PO SCH (08:06)
[2022-04-17] MEDS: apixaban 5mg tablet PO SCH (08:06)
[2022-04-17] MEDS: sertraline 50mg tablet PO SCH (08:06)
[2022-04-17] MEDS: HYDROcodone/acetaminophen 10/325mg tab PO SCH (08:07)
[2022-04-17] MEDS: ferrous sulfate 325mg tablet PO SCH (08:07)
[2022-04-17 11:43] VITALS: BP 140/75
[2022-04-17] MEDS ORDERED: METO-395 PO (13:04)
[2022-04-17] MEDS ORDERED: AMIO200T62 PO ×3 (13:08→13:11)
[2022-04-17 15:38] VITALS: BP 127/77
--- NOTE | 2022-04-17 17:16 | NUR ---
Pt. axox4 at the time of discharge teaching. Belongings secured, vitals stable, IVs taken out.
== END 2022-04-17 19:37 | disposition home health service (06) | DRG 309 ==
LOC: ER 11:27 → ED HOLD 15:42 → PCU 3S 19:31
PROVIDERS: ADMIT Internal Medicine; ATTEND Internal Medicine
PROC: 4B02XSZ Measurement of Cardiac Pacemaker, External Approach (ICD-10-PCS; 2022-04-12)
PROC: 5A2204Z Restoration of Cardiac Rhythm, Single (ICD-10-PCS; principal; 2022-04-14)
PROC: 5A09357 Assistance with Respiratory Ventilation, Less than 24 Consecutive Hours, Continuous Positive Airway Pressure (ICD-10-PCS; 2022-04-15)
DX: I48.92 Unspecified atrial flutter (principal); I13.0 Hypertensive heart and chronic kidney disease with heart failure and stage 1 through stage 4 chronic kidney disease, or unspecified chronic kidney disease; I50.22 Chronic systolic (congestive) heart failure; I48.0 Paroxysmal atrial fibrillation; E86.0 Dehydration; D69.6 Thrombocytopenia, unspecified; E11.22 Type 2 diabetes mellitus with diabetic chronic kidney disease; E11.42 Type 2 diabetes mellitus with diabetic polyneuropathy; E78.00 Pure hypercholesterolemia, unspecified; E87.5 Hyperkalemia; G89.4 Chronic pain syndrome; I25.10 Atherosclerotic heart disease of native coronary artery without angina pectoris; I42.0 Dilated cardiomyopathy; J44.9 Chronic obstructive pulmonary disease, unspecified; F32.A Depression, unspecified; F41.9 Anxiety disorder, unspecified; G47.33 Obstructive sleep apnea (adult) (pediatric); I49.5 Sick sinus syndrome; K52.9 Noninfective gastroenteritis and colitis, unspecified; I95.9 Hypotension, unspecified; M19.90 Unspecified osteoarthritis, unspecified site; R07.89 Other chest pain; Z60.2 Problems related to living alone; R74.01 Elevation of levels of liver transaminase levels; K21.9 Gastro-esophageal reflux disease without esophagitis; Z96.643 Presence of artificial hip joint, bilateral; N18.30 Chronic kidney disease, stage 3 unspecified; Z79.01 Long term (current) use of anticoagulants; I25.2 Old myocardial infarction; Z79.84 Long term (current) use of oral hypoglycemic drugs; Z79.899 Other long term (current) drug therapy; Z87.891 Personal history of nicotine dependence; Z95.0 Presence of cardiac pacemaker; Z95.1 Presence of aortocoronary bypass graft; Z95.3 Presence of xenogenic heart valve; Z98.61 Coronary angioplasty status; Z88.0 Allergy status to penicillin
CPT/HCPCS: 36415; 71045; 80053; 82948; 83690; 83735; 83880; 84145; 84484; 85008; 85025; 87081; 93005; 94640; 94760; 96361; 96374; 96375; 97116; 97162; 97530; 99285; A6212; A6213; G0378; J0282; J1815; J1940; J2250; J2270; J3010; J3490; J7030; J7040; J7614; Q0163

== ENCOUNTER 2023-01-19 17:14 | Emergency (ER) | payer MEDICARE, MEDICAID ==
[~2023-01-19] VITALS: Ht 167.6 cm; Wt 191.0 kg
[~2023-01-19 17:14] MED LIST changes: +DICY10CA88 PO; +DIPH-1055 PO; +FERR-106 PO; -FERR324T4 PO; +FLUT1AER INH; -FLUT1BLS24 PO; -IPRA3AMP31 NEB; -LISI10TA27 PO; +METF-1203 PO; -METO-395 PO; +METO-411 PO; +MONT-47 PO; -MONT10TA21 PO; -NITR0.4T SL; +NITR0.4T48 SL; +OMEP20CA16 PO; -OMEP40CA21 PO; +POTA-188 PO; -POTA10CA44 PO; +SACU1TAB PO
[2023-01-19 17:21] VITALS: TEMP 98.3
[2023-01-19] MEDS ORDERED: LIDOcaine 5% patch TP STA (18:08)
[2023-01-19] MEDS ORDERED: cyclobenzaprine 10mg tablet PO ONE (18:10)
--- NOTE | 2023-01-19 18:21 | NUR ---
assumed care from carlos eduardo navarrete
[2023-01-19 18:36] VITALS: BP 140/86; PULSE 72; RESP 17; O2SAT 94
== END 2023-01-19 18:37 | disposition home or self-care (01) ==
LOC: ER 17:15
DX: M43.6 Torticollis (principal); I50.9 Heart failure, unspecified; E78.00 Pure hypercholesterolemia, unspecified; J44.9 Chronic obstructive pulmonary disease, unspecified; K21.9 Gastro-esophageal reflux disease without esophagitis; E11.22 Type 2 diabetes mellitus with diabetic chronic kidney disease; N18.9 Chronic kidney disease, unspecified; Z88.0 Allergy status to penicillin; Z79.899 Other long term (current) drug therapy
CPT/HCPCS: 99284

== ENCOUNTER 2023-08-15 08:51 | Inpatient (IN) | payer MEDICARE, MEDICAID ==
[2023-08-15] VITALS (16 sets, daily range): BP systolic 93–107; BP diastolic 62–85; PULSE 92–132; RESP 16–22; O2SAT 93–98
[~2023-08-15] VITALS: Ht 165.1 cm; Wt 90.0 kg
[~2023-08-15 08:51] MED LIST changes: +BUPR-564 PO; -BUPR300T86 PO; -DIPH-1055 PO; +DIPH-1212 PO
[2023-08-15 09:48] LABS: HEMOGLOBIN 10.3 g/dl (12.0-16.0); LYMPHOCYTES # (AUTO) 0.4 X10'3 (1.1-4.8); MONOCYTES # (AUTO) 0.3 X10'3 (0-0.9)
[2023-08-15 09:50] LABS: BASOPHILS % (AUTO) 1.4 % (0-1); EOSINOPHILS % (AUTO) 1.2 % (0-6); HEMATOCRIT 32.4 % (35.0-45.0); LYMPHOCYTES % (AUTO) 13.5 % (21-51); MEAN CORPUSCULAR HGB CONC 31.7 g/dL (33.0-36.5); MEAN CORPUSCULAR VOLUME 88.2 FL (78-98); MEAN PLATELET VOLUME 10.1 FL (7.4-10.4); NEUTROPHILS # (AUTO) 2.4 X10'3 (1.8-7.7); NEUTROPHILS % (AUTO) 74.9 % (42-75); RED BLOOD COUNT 3.67 X10'6 (4.20-5.60); RED CELL DISTRIBUTION WIDTH 19.5 % (11.5-14.5); WHITE BLOOD COUNT 3.2 X10'3 (4.5-11.0)
[2023-08-15] MEDS: methylPREDNISolone sod succ 125mg/2ml vial IV ONE (09:56)
[2023-08-15] MEDS: CefTRIAXone 2gm/D5W 50ml BAG 50 ML IV ONE (09:56)
[2023-08-15] MEDS: nitroGLYCERIN 1gm ointment UD TP ONE (09:56)
[2023-08-15] MEDS: aspirin 325mg tablet, delayed-release (Ecotrin) PO ONE (09:56)
[2023-08-15] MEDS ORDERED: iohexol 350MG/ML 100ml bottle IV ONE (10:00)
[2023-08-15] MEDS: albuterol 2.5 MG/3 ML nebule CONTNEB PRN (10:16)
[2023-08-15 10:24] LABS: PLATELET COUNT 160 X10'3 (140-440)
[2023-08-15 10:41] LABS: ALBUMIN 2.8 G/DL (3.4-5.0); ANION GAP 8 (8-16); BLOOD UREA NITROGEN 35 MG/DL (7-18); BUN/CREATININE RATIO 23.2 (10.0-20.0); CALCIUM 8.5 MG/DL (8.5-10.1); CHLORIDE 109 MMOL/L (99-107); CREATININE 1.51 MG/DL (0.40-0.90); GLUCOSE 113 MG/DL (70-104); POTASSIUM 4.2 MMOL/L (3.5-5.1); PRO BRAIN NATRIURETIC PEPTIDE 16256 PG/ML (0-125); SODIUM 146 MMOL/L (135-145); TOTAL CARBON DIOXIDE 29.2 MMOL/L (24-32); eCRCL 32 ML/MIN; eGFR 34 ML/MIN
[2023-08-15] MEDS: azithromycin/NS 500mg/250ml 250 ML IV ONE (10:43)
[2023-08-15 10:44] LABS: PLATELET ESTIMATE NORMAL
[2023-08-15 10:45] LABS: GIANT PLATELET FEW; LARGE PLATELETS FEW
[2023-08-15 10:58] LABS: HYPOGRANULAR PLATELETS FEW
[2023-08-15 11:02] LABS: ANISOCYTOSIS 2+; STOMATOCYTES FEW
[2023-08-15 11:05] LABS: ELLIPTOCYTES FEW; POLYCHROMASIA FEW
[2023-08-15 11:07] LABS: TEAR DROP CELLS 1+
[2023-08-15 11:54] LABS: NUCLEATED RED BLOOD CELLS 1 /100WBC (0-0); TOTAL CELLS COUNTED 100
[2023-08-15] MEDS: albuterol 2.5 MG/3 ML nebule NEB ONE (13:27)
[2023-08-15] MEDS ORDERED: DILT240C78 PO (13:35)
[2023-08-15] MEDS ORDERED: FURO40TA4 PO (13:35)
[2023-08-15] MEDS ORDERED: SACU1TAB7 PO (13:35)
[2023-08-15] MEDS ORDERED: FLUT1BLS25 INH (13:35)
[2023-08-15] MEDS ORDERED: FERR-29 PO (13:35)
[2023-08-15] MEDS ORDERED: SACU1TAB4 PO (13:35)
[2023-08-15] MEDS ORDERED: ONDA-104 PO (13:35)
[2023-08-15] MEDS ORDERED: potassium Cl 20 mEq SR tablet PO PRN ×2 (13:45)
[2023-08-15] MEDS ORDERED: HYDROcodone/acetaminophen 5mg/325mg tablet PO PRN (13:45)
[2023-08-15] MEDS ORDERED: magnesium 4gm in 100ml NS 100 ML IV PRN (13:45)
[2023-08-15] MEDS ORDERED: mag hydrox/Alum hydrox/simeth 30ml oral suspension PO PRN (13:45)
[2023-08-15] MEDS ORDERED: magnesium Cl slow-release 64mg tablet PO PRN (13:45)
[2023-08-15] MEDS ORDERED: magnesium 2GM in 50ml NS 50 ML IV PRN (13:45)
[2023-08-15] MEDS ORDERED: acetaminophen 325mg tablet PO PRN (13:45)
[2023-08-15] MEDS ORDERED: potassium Cl 40MEQ/1/2NS 520ml 520 ML IV PRN (13:45)
[2023-08-15] MEDS ORDERED: magnesium hydroxide 30ml (MOM) UD suspension PO PRN (13:45)
[2023-08-15] MEDS: furosemide 10 MG/1 ML 10ml inj IV ONE (14:28)
[2023-08-15] MEDS: digoxin 250mcg/ml 2ml ampule IV ONE (14:29)
[2023-08-15] MEDS ORDERED: LIDOcaine 1% 30ml preserv. free vial ONE (15:17)
[2023-08-15] MEDS: amiodarone 150mg/dext, iso-os 100 ML IV ONE (16:30)
[2023-08-15] MEDS: morphine 2 MG/ML inj. syringe IV PRN (16:36)
[2023-08-15 16:45] LABS: HEMOGLOBIN A1C 5.7 % (4.5-6.2)
[2023-08-15] MEDS ORDERED: nitroGLYCERIN 0.4mg SUBLingual tab SL PRN (17:00)
[2023-08-15] MEDS ORDERED: dextrose 50%-water 50ml dispensing syringe IV PRN ×2 (17:05)
[2023-08-15] MEDS ORDERED: glucagon, human recombinant 1mg kit SUBCUT PRN (17:05)
[2023-08-15] MEDS ORDERED: insulin Lispro (HumaLOG) vial - multi-dose SQ SCH (17:05)
[2023-08-15] MEDS ORDERED: DEXTROSE 15 GM of carb/4 tabs (each vial/BOTTLE has 4 tablets) PO PRN ×2 (17:05)
[2023-08-15] MEDS: amiodarone/D5 360MG/200ML BAG 200 ML IV SCH (17:12)
[2023-08-15] MEDS: HYDROcodone/acetaminophen 10/325mg tab PO PRN (17:12)
[2023-08-15 17:24] LABS: BFSOURCE RIGHT PLEURAL FLD; PLEURAL FLUID PH 7.581 (7.63-7.65)
[2023-08-15] MEDS: ringers solution, lacted 1,000 ML IV ONE ×2 (17:33→17:47)
[2023-08-15] MEDS ORDERED: ipratropium/albuterol 3ml nebule NEB PRN (17:35)
[2023-08-15] MEDS: MESSAGE TO PHARMACY PO ONE (17:46)
[2023-08-15] MEDS: ipratropium/albuterol 3ml nebule NEB PRN (19:25)
[2023-08-15] MEDS: K and/or MAG REPLACEMENT MC SCH (19:57)
[2023-08-15] MEDS ORDERED: heparin, porcine 5000 units/ml vial SQ SCH (20:00)
[2023-08-15] MEDS: apixaban 5mg tablet PO SCH (20:08)
[2023-08-15] MEDS: docusate sod 100mg capsule PO SCH (20:08)
[2023-08-15] MEDS: buPROPion SR 150mg tablet PO SCH (20:08)
[2023-08-15] MEDS: insulin glargine (Lantus) pen - multi-dose SQ SCH (20:21)
[2023-08-16] VITALS (11 sets, daily range): BP systolic 116–123; BP diastolic 56–81; PULSE 84–128; RESP 16–22; TEMP 97.1–97.4; O2SAT 94–99
[2023-08-16] MEDS: ferrous sulfate 325mg tablet PO SCH (07:24)
[2023-08-16] MEDS: metoprolol succinate 25mg (24-HOUR) SR. Tablet PO SCH (07:25)
[2023-08-16] MEDS: sertraline 50mg tablet PO SCH (07:26)
[2023-08-16 08:14] LABS: EOSINOPHILS % (AUTO) 0.3 % (0-6); HEMOGLOBIN 9.8 g/dl (12.0-16.0); LYMPHOCYTES # (AUTO) 0.4 X10'3 (1.1-4.8); MEAN CORPUSCULAR HEMOGLOBIN 28.1 PG (27.0-31.0); MONOCYTES # (AUTO) 0.6 X10'3 (0-0.9); WHITE BLOOD COUNT 4.3 X10'3 (4.5-11.0)
[2023-08-16 08:15] LABS: BASOPHILS % (AUTO) 0.6 % (0-1); LYMPHOCYTES % (AUTO) 10.1 % (21-51); MEAN CORPUSCULAR HGB CONC 31.7 g/dL (33.0-36.5); MEAN CORPUSCULAR VOLUME 88.7 FL (78-98); MEAN PLATELET VOLUME 10.1 FL (7.4-10.4); MONOCYTES % (AUTO) 13.6 % (2-12); NEUTROPHILS # (AUTO) 3.2 X10'3 (1.8-7.7); NEUTROPHILS % (AUTO) 75.4 % (42-75); PLATELET COUNT 150 X10'3 (140-440); RED BLOOD COUNT 3.49 X10'6 (4.20-5.60); RED CELL DISTRIBUTION WIDTH 19.4 % (11.5-14.5)
[2023-08-16] MEDS: levoFLOXACIN-Levaquin 500mg/D5 100 ML IV ONE (08:21)
[2023-08-16 08:48] LABS: ALANINE AMINOTRANSFERASE 16 U/L (12-78); ALBUMIN 2.7 G/DL (3.4-5.0); ALBUMIN/GLOBULIN RATIO 0.8 (1.1-1.5); ALKALINE PHOSPHATASE 99 IU/L (46-116); ANION GAP 6 (8-16); ASPARTATE AMINO TRANSFERASE 8 U/L (10-37); BILIRUBIN,TOTAL 0.3 MG/DL (0.1-1.0); BLOOD UREA NITROGEN 39 MG/DL (7-18); BUN/CREATININE RATIO 27.1 (10.0-20.0); CALCIUM 8.1 MG/DL (8.5-10.1); CHLORIDE 105 MMOL/L (99-107); CHOL/HDL RATIO 3.5 (0.00-4.99); CHOLESTEROL 143 MG/DL (0-200); CREATININE 1.44 MG/DL (0.40-0.90); GLUCOSE 119 MG/DL (70-104); HDL CHOLESTEROL 41 MG/DL (35-60); LDL CHOLESTEROL 82 MG/DL (50-100); MAGNESIUM 1.5 MG/DL (1.5-2.4); POTASSIUM 4.1 MMOL/L (3.5-5.1); SODIUM 143 MMOL/L (135-145); TOTAL CARBON DIOXIDE 32.4 MMOL/L (24-32); TOTAL PROTEIN 6.1 G/DL (6.4-8.2); TRIGLYCERIDES 157 MG/DL (20-135); eCRCL 33 ML/MIN; eGFR 36 ML/MIN
[2023-08-16] MEDS: digoxin 250mcg/ml 2ml ampule IV STA (09:40)
[2023-08-16] MEDS: metoprolol tartrate 1mg/ml inj IV STA (09:44)
[2023-08-16 12:59] LABS: THYROID STIMULATING HORMONE 3.75 ulU/ml (0.34-4.50)
[2023-08-16] MEDS: metoprolol tartrate 25mg tablet PO SCH (14:21)
[2023-08-16] MEDS: digoxin 250mcg/ml 2ml ampule IV ONE ×2 (14:23→21:19)
[2023-08-17] VITALS (15 sets, daily range): BP systolic 89–123; BP diastolic 55–78; PULSE 63–101; RESP 15–24; TEMP 97.1–97.8; O2SAT 94–99
[2023-08-17] MEDS: sertraline 50mg tablet PO SCH (07:46)
[2023-08-17 08:15] LABS: BASOPHILS % (AUTO) 1.1 % (0-1); HEMATOCRIT 30.4 % (35.0-45.0); HEMOGLOBIN 9.5 g/dl (12.0-16.0); LYMPHOCYTES # (AUTO) 0.3 X10'3 (1.1-4.8); LYMPHOCYTES % (AUTO) 10.4 % (21-51); MEAN CORPUSCULAR HEMOGLOBIN 27.9 PG (27.0-31.0); MEAN CORPUSCULAR HGB CONC 31.2 g/dL (33.0-36.5); MEAN CORPUSCULAR VOLUME 89.5 FL (78-98); MEAN PLATELET VOLUME 10.5 FL (7.4-10.4); MONOCYTES # (AUTO) 0.4 X10'3 (0-0.9); NEUTROPHILS # (AUTO) 1.9 X10'3 (1.8-7.7); NEUTROPHILS % (AUTO) 73.5 % (42-75); PLATELET COUNT 123 X10'3 (140-440); RED CELL DISTRIBUTION WIDTH 19.5 % (11.5-14.5); WHITE BLOOD COUNT 2.6 X10'3 (4.5-11.0)
[2023-08-17 08:21] LABS: ALANINE AMINOTRANSFERASE 11 U/L (12-78); ALBUMIN 2.5 G/DL (3.4-5.0); ALBUMIN/GLOBULIN RATIO 0.8 (1.1-1.5); ALKALINE PHOSPHATASE 88 IU/L (46-116); ANION GAP 10 (8-16); ASPARTATE AMINO TRANSFERASE 22 U/L (10-37); BILIRUBIN,TOTAL 0.3 MG/DL (0.1-1.0); BLOOD UREA NITROGEN 33 MG/DL (7-18); BUN/CREATININE RATIO 25.8 (10.0-20.0); CALCIUM 8.4 MG/DL (8.5-10.1); CHLORIDE 106 MMOL/L (99-107); CREATININE 1.28 MG/DL (0.40-0.90); GLUCOSE 75 MG/DL (70-104); MAGNESIUM 1.7 MG/DL (1.5-2.4); SODIUM 143 MMOL/L (135-145); TOTAL CARBON DIOXIDE 26.9 MMOL/L (24-32); TOTAL PROTEIN 5.8 G/DL (6.4-8.2); eCRCL 37 ML/MIN; eGFR 41 ML/MIN
[2023-08-17 08:27] LABS: POTASSIUM 4.7 MMOL/L (3.5-5.1)
[2023-08-17 08:46] LABS: TOTAL CELLS COUNTED 100
[2023-08-17 08:47] LABS: ANISOCYTOSIS 2+; PLATELET ESTIMATE DECREASED; POLYCHROMASIA 1+; TEAR DROP CELLS FEW
[2023-08-17] MEDS: digoxin 250mcg (0.25mg) tablet PO SCH (15:07)
[2023-08-17] MEDS: amiodarone 200mg tablet PO SCH (15:07)
[2023-08-17 15:11] LABS: DIGOXIN 2.7 NG/ML (0.9-1.9)
[2023-08-17] MEDS: lactose-reduced food (Ensure High Protein) 237ml bottle PO SCH (18:00)
[2023-08-18] VITALS (14 sets, daily range): BP systolic 103–115; BP diastolic 50–79; PULSE 76–106; RESP 15–20; TEMP 96.8–98.9; O2SAT 93–100
[2023-08-18] MEDS: ondansetron/PF 4mg/2ml inj IV PRN (00:18)
[2023-08-18 06:57] LABS: ALANINE AMINOTRANSFERASE 13 U/L (12-78); ALBUMIN 2.5 G/DL (3.4-5.0); ALBUMIN/GLOBULIN RATIO 0.8 (1.1-1.5); ALKALINE PHOSPHATASE 93 IU/L (46-116); ANION GAP 7 (8-16); ASPARTATE AMINO TRANSFERASE 17 U/L (10-37); BILIRUBIN,TOTAL 0.3 MG/DL (0.1-1.0); BLOOD UREA NITROGEN 30 MG/DL (7-18); BUN/CREATININE RATIO 28.6 (10.0-20.0); CALCIUM 8.5 MG/DL (8.5-10.1); CHLORIDE 106 MMOL/L (99-107); CREATININE 1.05 MG/DL (0.40-0.90); GLUCOSE 88 MG/DL (70-104); POTASSIUM 4.9 MMOL/L (3.5-5.1); SODIUM 142 MMOL/L (135-145); TOTAL CARBON DIOXIDE 28.6 MMOL/L (24-32); TOTAL PROTEIN 5.8 G/DL (6.4-8.2); eCRCL 46 ML/MIN; eGFR 52 ML/MIN
[2023-08-18 06:59] LABS: DIGOXIN 1.8 NG/ML (0.9-1.9); MAGNESIUM 1.8 MG/DL (1.5-2.4)
[2023-08-18 07:02] LABS: HEMATOCRIT 30.9 % (35.0-45.0); HEMOGLOBIN 9.7 g/dl (12.0-16.0); MEAN CORPUSCULAR HEMOGLOBIN 27.9 PG (27.0-31.0); MEAN CORPUSCULAR HGB CONC 31.3 g/dL (33.0-36.5); MEAN CORPUSCULAR VOLUME 89.1 FL (78-98); MEAN PLATELET VOLUME 10.1 FL (7.4-10.4); PLATELET COUNT 99 X10'3 (140-440); RED BLOOD COUNT 3.46 X10'6 (4.20-5.60); RED CELL DISTRIBUTION WIDTH 19.9 % (11.5-14.5); WHITE BLOOD COUNT 2.2 X10'3 (4.5-11.0)
[2023-08-18 08:46] LABS: ANISOCYTOSIS 2+; NUCLEATED RED BLOOD CELLS 2 /100WBC (0-0); PLATELET ESTIMATE DECREASED; TOTAL CELLS COUNTED 100
[2023-08-18 08:47] LABS: POLYCHROMASIA 1+; ROULEAUX 1+; TEAR DROP CELLS FEW
[2023-08-18] MEDS: LIDOcaine 5% patch TP SCH (10:35)
[2023-08-18] MEDS ORDERED: guaiFENesin 200 MG/10 ML oral syrup UD cup PO PRN (10:35)
[2023-08-18] MEDS: morphine 4 MG/ML inj SYRINge IV ONE (11:35)
[2023-08-18] MEDS: predniSONE 20 mg tablet PO SCH (11:35)
[2023-08-18] MEDS: furosemide 40mg/4ml inj IV SCH (11:35)
[2023-08-18] MEDS: digoxin 125mcg (0.125mg) tablet PO SCH (11:36)
[2023-08-19] VITALS (12 sets, daily range): BP systolic 99–116; BP diastolic 6–65; PULSE 82–113; RESP 15–27; TEMP 97–99.3; O2SAT 2–99
[2023-08-19 06:51] LABS: BASOPHILS % (AUTO) 0.6 % (0-1); EOSINOPHILS % (AUTO) 0.6 % (0-6); HEMOGLOBIN 9.6 g/dl (12.0-16.0); LYMPHOCYTES # (AUTO) 0.4 X10'3 (1.1-4.8); LYMPHOCYTES % (AUTO) 15.5 % (21-51); MEAN CORPUSCULAR HEMOGLOBIN 28.4 PG (27.0-31.0); MEAN CORPUSCULAR VOLUME 88.9 FL (78-98); MEAN PLATELET VOLUME 9.9 FL (7.4-10.4); MONOCYTES # (AUTO) 0.5 X10'3 (0-0.9); MONOCYTES % (AUTO) 18.5 % (2-12); NEUTROPHILS # (AUTO) 1.8 X10'3 (1.8-7.7); NEUTROPHILS % (AUTO) 64.8 % (42-75); PLATELET COUNT 119 X10'3 (140-440); RED BLOOD COUNT 3.38 X10'6 (4.20-5.60); RED CELL DISTRIBUTION WIDTH 19.9 % (11.5-14.5); WHITE BLOOD COUNT 2.8 X10'3 (4.5-11.0)
[2023-08-19 07:41] LABS: ALANINE AMINOTRANSFERASE 13 U/L (12-78); ALBUMIN 2.6 G/DL (3.4-5.0); ALBUMIN/GLOBULIN RATIO 0.7 (1.1-1.5); ALKALINE PHOSPHATASE 91 IU/L (46-116); ANION GAP 9 (8-16); ASPARTATE AMINO TRANSFERASE 14 U/L (10-37); BILIRUBIN,TOTAL 0.4 MG/DL (0.1-1.0); BLOOD UREA NITROGEN 36 MG/DL (7-18); BUN/CREATININE RATIO 32.1 (10.0-20.0); CALCIUM 8.6 MG/DL (8.5-10.1); CHLORIDE 105 MMOL/L (99-107); CREATININE 1.12 MG/DL (0.40-0.90); DIGOXIN 1.3 NG/ML (0.9-1.9); GLUCOSE 96 MG/DL (70-104); MAGNESIUM 1.9 MG/DL (1.5-2.4); POTASSIUM 3.9 MMOL/L (3.5-5.1); SODIUM 146 MMOL/L (135-145); TOTAL PROTEIN 6.1 G/DL (6.4-8.2); eCRCL 43 ML/MIN; eGFR 48 ML/MIN
[2023-08-19 07:52] LABS: ANISOCYTOSIS 2+; NUCLEATED RED BLOOD CELLS 1 /100WBC (0-0); PLATELET ESTIMATE DECREASED; TOTAL CELLS COUNTED 100
[2023-08-19 07:53] LABS: POLYCHROMASIA 2+
[2023-08-19 07:54] LABS: ELLIPTOCYTES FEW; TEAR DROP CELLS 1+
[2023-08-20] VITALS (13 sets, daily range): BP systolic 96–115; BP diastolic 55–74; PULSE 71–104; RESP 13–25; TEMP 96.8–98.7; O2SAT 92–100
[2023-08-20 08:49] LABS: BASOPHILS % (AUTO) 0.6 % (0-1); EOSINOPHILS % (AUTO) 0.9 % (0-6); HEMATOCRIT 32.5 % (35.0-45.0); HEMOGLOBIN 10.2 g/dl (12.0-16.0); LYMPHOCYTES # (AUTO) 0.4 X10'3 (1.1-4.8); LYMPHOCYTES % (AUTO) 12.9 % (21-51); MEAN CORPUSCULAR HEMOGLOBIN 28.3 PG (27.0-31.0); MEAN CORPUSCULAR HGB CONC 31.6 g/dL (33.0-36.5); MEAN CORPUSCULAR VOLUME 89.5 FL (78-98); MEAN PLATELET VOLUME 10.8 FL (7.4-10.4); MONOCYTES # (AUTO) 0.4 X10'3 (0-0.9); MONOCYTES % (AUTO) 14.1 % (2-12); NEUTROPHILS # (AUTO) 2.2 X10'3 (1.8-7.7); NEUTROPHILS % (AUTO) 71.5 % (42-75); PLATELET COUNT 119 X10'3 (140-440); RED BLOOD COUNT 3.62 X10'6 (4.20-5.60); RED CELL DISTRIBUTION WIDTH 19.7 % (11.5-14.5)
[2023-08-20 09:47] LABS: ANISOCYTOSIS 2+; PLATELET ESTIMATE DECREASED
[2023-08-20 09:48] LABS: ELLIPTOCYTES FEW; TEAR DROP CELLS FEW
[2023-08-20 09:54] LABS: ALANINE AMINOTRANSFERASE 15 U/L (12-78); ALBUMIN 2.8 G/DL (3.4-5.0); ALBUMIN/GLOBULIN RATIO 0.8 (1.1-1.5); ALKALINE PHOSPHATASE 96 IU/L (46-116); ANION GAP 7 (8-16); ASPARTATE AMINO TRANSFERASE 15 U/L (10-37); BILIRUBIN,TOTAL 0.5 MG/DL (0.1-1.0); BLOOD UREA NITROGEN 45 MG/DL (7-18); BUN/CREATININE RATIO 38.1 (10.0-20.0); CALCIUM 8.5 MG/DL (8.5-10.1); CHLORIDE 102 MMOL/L (99-107); CREATININE 1.18 MG/DL (0.40-0.90); GLUCOSE 74 MG/DL (70-104); POTASSIUM 3.8 MMOL/L (3.5-5.1); SODIUM 144 MMOL/L (135-145); TOTAL CARBON DIOXIDE 34.6 MMOL/L (24-32); TOTAL PROTEIN 6.3 G/DL (6.4-8.2); eCRCL 40 ML/MIN; eGFR 45 ML/MIN
[2023-08-21 02:00] VITALS: BP 110/70; PULSE 83; RESP 18; TEMP 97.4; O2SAT 99
[2023-08-21 03:43] VITALS: PULSE 76; RESP 20; O2SAT 98
[2023-08-21 07:00] VITALS: BP 118/74; PULSE 97; RESP 14; TEMP 97.4; O2SAT 96
[2023-08-21 08:05] VITALS: BP_SYST 118; PULSE 83
== END 2023-08-21 08:46 | DRG 180 ==
LOC: ER 08:52 → ED HOLD 13:50 → PCU 3S 08-16 16:43
PROVIDERS: ADMIT Internal Medicine; ATTEND Internal Medicine
PROC: B32T1ZZ Computerized Tomography (CT Scan) of Left Pulmonary Artery using Low Osmolar Contrast (ICD-10-PCS; principal; 2023-08-15)
PROC: B3201ZZ Computerized Tomography (CT Scan) of Thoracic Aorta using Low Osmolar Contrast (ICD-10-PCS; 2023-08-15)
PROC: B32S1ZZ Computerized Tomography (CT Scan) of Right Pulmonary Artery using Low Osmolar Contrast (ICD-10-PCS; 2023-08-15)
PROC: 0W9B30Z Drainage of Left Pleural Cavity with Drainage Device, Percutaneous Approach (ICD-10-PCS; 2023-08-15)
DX: C34.90 Malignant neoplasm of unspecified part of unspecified bronchus or lung (principal); D61.810 Antineoplastic chemotherapy induced pancytopenia; I50.23 Acute on chronic systolic (congestive) heart failure; N17.0 Acute kidney failure with tubular necrosis; J96.21 Acute and chronic respiratory failure with hypoxia; J91.0 Malignant pleural effusion; R65.10 Systemic inflammatory response syndrome (SIRS) of non-infectious origin without acute organ dysfunction; E87.0 Hyperosmolality and hypernatremia; J44.1 Chronic obstructive pulmonary disease with (acute) exacerbation; D63.1 Anemia in chronic kidney disease; E78.00 Pure hypercholesterolemia, unspecified; I25.10 Atherosclerotic heart disease of native coronary artery without angina pectoris; E11.22 Type 2 diabetes mellitus with diabetic chronic kidney disease; N18.30 Chronic kidney disease, stage 3 unspecified; I25.5 Ischemic cardiomyopathy; I48.0 Paroxysmal atrial fibrillation; E66.01 Morbid (severe) obesity due to excess calories; N18.9 Chronic kidney disease, unspecified; E88.09 Other disorders of plasma-protein metabolism, not elsewhere classified; F32.A Depression, unspecified; F41.9 Anxiety disorder, unspecified; K21.9 Gastro-esophageal reflux disease without esophagitis; I25.2 Old myocardial infarction; Z88.0 Allergy status to penicillin; Z79.899 Other long term (current) drug therapy; Z79.01 Long term (current) use of anticoagulants; Z92.21 Personal history of antineoplastic chemotherapy; Z92.3 Personal history of irradiation; Z68.31 Body mass index [BMI] 31.0-31.9, adult
CPT/HCPCS: 32557; 36415; 71045; 71275; 77012; 80048; 80053; 80061; 80162; 82948; 83036; 83605; 83735; 83880; 83986; 84443; 84484; 85007; 85008; 85025; 87040; 87070; 87081; 87502; 87503; 88108; 88305; 93005; 93306; 94640; 94760; 96365; 96367; 97110; 97161; 97530; 99285; A4421; A4615; A6258; C1769; G0378; J0282; J0456; J0696; J1160; J1815; J1940; J1956; J2270; J2405; J2930; J3490; J7120; J7512; Q9967